=== PATIENT | female | born 1960 | race Caucasian/White ===

== ENCOUNTER 2019-11-21 19:32 | Inpatient (IN) | payer OTHER ==
[2019-11-21 20:21] LABS: Absolute Neutrophil Ct (ANC) 2.94 (1.4-6.9); BASOPHIL % 0.2 % (0.0-0.4); Basophil (Absolute #) 0.01 (0-0.4); Eosinophil (Absolute #) 0 (0-0.5); Hematocrit 41.3 % (35-47); Hemoglobin 13.5 gm/dl (12.0-16.0); Lymphocyte (Absolute #) 0.78 (1.0-4.6); Lymphocytes % 17.9 % (24.0-44.0); Mean Cell Volume 93.2 fl (78-100); Mean Corpuscular Hemoglobin 30.5 pg (26-32); Mean Corpuscular Hgb Concent. 32.7 g/dl (32-36); Monocyte (Absolute #) 0.63 (0.0-1.3); Monocytes % 14.4 % (0.0-12.0); Neutrophil % 67.5 % (36.0-66.0); Platelet Count 224 K/mm3 (150-450); Red Blood Count 4.43 M/mm3 (4.1-5.4); Red Cell Distribution Width 12.7 % (11.5-14.0); White Blood Count 4.4 K/mm3 (4.0-10.5)
[2019-11-21] MEDS ORDERED: Zofran 4 MG/2 ML VIAL IV ONE (20:22)
[2019-11-21] MEDS ORDERED: Sodium Chloride 0.9% 1000 ML 1,000 ML IV STA (20:22)
[2019-11-21] MEDS ORDERED: Zofran 4 MG/2 ML VIAL ONE (20:24)
[2019-11-21] MEDS ORDERED: Sodium Chloride 0.9% 1000 ML 1,000 ML ONE (20:24)
[2019-11-21 20:29] LABS: ALBUMIN 4.2 g/dL (3.5-5.0); ALKALINE PHOSPHATASE 108 U/L (38-126); AMYLASE 115 U/L (30-110); ANION GAP 13.1 MEQ/L (5-15); BLOOD UREA NITROGEN 17 mg/dL (7-17); CHLORIDE 99 mmol/L (98-107); Calcium 8.9 mg/dL (8.4-10.2); Carbon Dioxide 27 mmol/L (22-30); Creatinine 1 0.78 mg/dL (0.52-1.04); EST GLOMERULAR FILTRATION RATE > 60.0 ML/MIN; Glucose 181 mg/dL (74-106); LIPASE 188 U/L (23-300); Potassium 4.1 mmol/L (3.5-5.1); SGOT/AST 45 U/L (14-36); SGPT/ALT 24 U/L (0-35); SODIUM 136 mmol/L (137-145); Total Protein 7.6 g/dL (6.3-8.2)
--- NOTE | 2019-11-21 20:48 | ERPHSYRPT ---
- History of Present Illness Time Seen by Provider: 11/21/19 20:01 Historian: patient Exam Limitations: no limitations Patient Subjective Stated Complaint: "I've been real tired and weak for four days and then yesterday started vomiting." Triage Nursing Assessment: 59 y/o female presented with cc: fatigue, body aches, excessive tiredeness, and vomiting. Pt reported symptom onset of 4 days ago for the fatigue and myalgias. Symptoms reported to be constant and mild in severity. pt reported vomiting onset two days ago. Myalgias reproted to be general and all over. Pt denied any alleviating/aggrevating factors. Pt reported decreased food and fluid intake since symptom onset. Pt reporetd intermittent feelings of palpitations and racing heart beart. Pt denied headache, dizziness, visual/auditory disturbances. Pt denied chest pain/pressure/discomfort. Pt denied shortness of breath or cough. Pupils 3mm brisk reaction. Oral mucosa pale/moist. neck supple non-tender without lymphadenopathy. No noted JVD. Symmetrical chest expansion. Heart tones regular S1 and S2 without S3, S4, gallop, or murmur. Lungs clear to ausculation in the upper lobes with noted diffuse posterior bibasilar crackles. Abdomen flat non-distended with bowel sounds present throughout all quadrants. Diffuse tenderness noted upon palpation. No noted palpable organomegaly or pulsatile masses. No noted dependent edema. 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 Last night she started to have nausea and vomited multiple times, nonprojectile, nonbilious with no hematemesis. Because of repeated vomiting, is unable to hold much down since last night. Feels dehydrated. No diarrhea. She is complaining of mild mid to left lower abdominal soreness which is aggravated with vomiting. She is also having low-grade fever and chills. Timing/Duration: day(s), gradual onset, worse Activities at Onset: rest Quality: dullness Abdominal Pain Onset Location: LLQ, periumbilical Pain Radiation: no radiation Severity of Pain-Max: moderate Severity of Pain-Current: mild Modifying Factors: Improves With: vomiting Associated Symptoms: fever/chills, fatigue, nausea, vomiting, weakness Previous symptoms: no prior history Allergies/Adverse Reactions: No Known Drug Allergies Allergy (Verified 11/21/19 19:40) Home Medications: Aspirin EC 81 mg [Ecotrin 81 mg] 81 mg PO DAILY 01/24/17 [History] Cetirizine HCl [Zyrtec] 10 mg PO DAILY 01/24/17 [History] Metformin HCl 1,000 mg PO BID 01/24/17 [History] Sitagliptin Phosphate [Januvia] 100 mg PO DAILY 01/24/17 [History] Trazodone HCl 75 mg PO HS 01/24/17 [History] Vitamin B Complex [Super B Complex] 1 tab PO DAILY 01/24/17 [History] Empagliflozin [Jardiance] 25 mg PO DAILY 11/21/19 [History] Hx Tetanus, Diphtheria Vaccination/Date Given: No Hx Influenza Vaccination/Date Given: Yes Travel Risk - International Travel Have you traveled outside of the country in past 3 weeks: No - Coronavirus Screening Are you exhibiting any of the following symptoms?: Yes Symptoms: Vomiting/Diarrhea, Headaches/Body Aches/Fatigue Close contact with a COVID-19 positive Pt in past 14-21 Days: Yes - Review of Systems Constitutional: Fever, Chills, Fatigue, Malaise, Weakness Eyes: No Symptoms Ears, Nose, & Throat: No Symptoms Respiratory: No Symptoms Cardiac: No Symptoms Abdominal/Gastrointestinal: Abdominal Pain, Nausea, Vomiting Genitourinary Symptoms: No Symptoms Musculoskeletal: No Symptoms, Myalgias Skin: No Symptoms Neurological: No Symptoms Psychological: No Symptoms Endocrine: No Symptoms Hematologic/Lymphatic: No Symptoms Immunological/Allergic: No Symptoms - Past Medical History Pertinent Past Medical History: Yes Neurological History: No Pertinent History ENT History: No Pertinent History Cardiac History: Hypertension Respiratory History: Bronchitis Endocrine Medical History: Diabetes Type II Musculoskeletal History: No Pertinent History GI Medical History: No Pertinent History History: No Pertinent History Psycho-Social History: Depression Female Reproductive Disorders: No Pertinent History - Past Surgical History Past Surgical History: Yes Neuro Surgical History: No Pertinent History Cardiac: No Pertinent History Respiratory: No Pertinent History Gastrointestinal: Appendectomy Genitourinary: No Pertinent History Musculoskeletal: No Pertinent History Female Surgical History: Tubal Ligation - Social History Smoking Status: Never smoker Exposure to second hand smoke: No Drug Use: none Patient Lives Alone: Yes - Nursing Vital Signs Nursing Vital Signs: Initial Vital Signs Temperature 97.9 F 11/21/19 19:33 Pulse Rate 74 11/21/19 19:33 Respiratory Rate 12 11/21/19 19:33 Blood Pressure 164/84 11/21/19 19:33 O2 Sat by Pulse Oximetry 92 L 11/21/19 19:33 Pain Scale Pain Intensity 5 - Physical Exam General Appearance: no apparent distress, alert Eye Exam: PERRL/EOMI, eyes nml inspection Ears, Nose, Throat Exam: normal ENT inspection, pharynx normal Neck Exam: normal inspection, non-tender Respiratory Exam: normal breath sounds, lungs clear Cardiovascular Exam: regular rate/rhythm, normal heart sounds Gastrointestinal/Abdomen Exam: soft, tenderness (mild periumbilical/left lower quadrant) Back Exam: normal inspection, normal range of motion Extremity Exam: normal inspection Neurologic Exam: alert, oriented x 3, cooperative Skin Exam: normal color, warm SpO2 Interpretation: normal SpO2: 94 O2 Delivery: Room Air - Course EKG Interpreted by Me: RATE ([id number]), Sinus Rhythm, Left Vevay Deviation, NORMAL INTERVALS, NORMAL QRS Ordered Tests: Active Orders 24 hr Category Date Time Status Parlor Maid STAT Care 11/21/19 19:48 Active EKG-ER Only STAT Care 11/21/19 19:48 Active IV Insertion STAT Care 11/21/19 19:48 Active Pulse Oximetry (ED) STAT Care 11/21/19 19:48 Active OBSTR/ACUTE ABDOMEN SERIES Stat Exams 11/21/19 20:01 Taken AMYLASE Stat Lab 11/21/19 20:10 Completed BLOOD CULTURE Stat Lab 11/21/19 Ordered CBC W DIFF Stat Lab 11/21/19 20:10 Completed CMP Stat Lab 11/21/19 20:10 Completed CULTURE,URINE Stat Lab 11/21/19 22:00 Received LIPASE Stat Lab 11/21/19 20:10 Completed Lactic Acid Stat Lab 11/21/19 20:00 Completed TROPONIN Q3H Lab 11/21/19 20:10 Completed TROPONIN Q3H Lab 11/21/19 22:30 Completed UA W/RFX UR CULTURE Stat Lab 11/21/19 22:00 Completed Transfer Order Routine Transfer 11/21/19 Ordered Medication Summary Discontinued Medications Generic Name Dose Route Start Last Admin Trade Name Freq PRN Reason Stop Dose Admin Sodium Chloride 1,000 mls @ 999 mls/hr 11/21/19 20:22 11/21/19 22:00 Sodium Chloride 0.9% 1000 Ml IV 11/21/19 21:22 Infused .Q1H1M STA Infusion Sodium Chloride Confirm 11/21/19 20:24 Sodium Chloride 0.9% 1000 Ml Administered 11/21/19 20:25 Dose 1,000 mls @ ud .ROUTE .STK-MED ONE Azithromycin 500 mg in 250 mls @ 250 mls/hr 11/21/19 22:32 11/21/19 23:14 Zithromax 500 Mg/ 250 Ml Nacl Premix IV 11/21/19 23:31 250 mls/hr STAT STA 250 mls/hr Administration Ceftriaxone Sodium/Dextrose 2 g in 50 mls @ 100 mls/hr 11/21/19 22:32 11/21/19 22:37 Rocephin 2 Gm-D5w 50ml Bag IV 11/21/19 23:01 100 mls/hr STAT STA 100 mls/hr Administration Azithromycin Confirm 11/21/19 22:36 Zithromax 500 Mg/ 250 Ml Nacl Premix Administered 11/21/19 22:37 Dose 500 mg in 250 mls @ ud IV .STK-MED ONE Ceftriaxone Sodium/Dextrose Confirm 11/21/19 22:36 Rocephin 2 Gm-D5w 50ml Bag Administered 11/21/19 22:37 Dose 2 g in 50 mls @ ud IV .STK-MED ONE Morphine Sulfate 4 mg 11/21/19 23:59 Morphine Sulfate 4 Mg Inj IV 11/22/19 00:00 STAT ONE Ondansetron HCl 4 mg 11/21/19 20:22 11/21/19 20:25 Zofran 4 Mg/2 Ml Vial IV 11/21/19 20:23 4 mg STAT ONE Administration Ondansetron HCl Confirm 11/21/19 20:24 Zofran 4 Mg/2 Ml Vial Administered 11/21/19 20:25 Dose 4 mg .ROUTE .STK-MED ONE Lab/Rad Data: Laboratory Result Diagrams 11/21/19 20:10 11/21/19 20:10 Laboratory Results 11/21/19 11/21/19 11/21/19 Range/Units 22:30 22:30 22:00 WBC (4.0-10.5) K/mm3 RBC (4.1-5.4) M/mm3 Hgb (12.0-16.0) gm/dl Hct (35-47) % MCV (78-100) fl MCH (26-32) pg MCHC (32-36) g/dl RDW (11.5-14.0) % Plt Count (150-450) K/mm3 MPV (7.5-11.0) fl Gran % (36.0-66.0) % Eos # (Auto) (0-0.5) Absolute Lymphs (auto) (1.0-4.6) Absolute Monos (auto) (0.0-1.3) Lymphocytes % (24.0-44.0) % Monocytes % (0.0-12.0) % Eosinophils % (0.00-5.0) % Basophils % (0.0-0.4) % Absolute Granulocytes (1.4-6.9) Basophils # (0-0.4) Sodium (137-145) mmol/L Potassium (3.5-5.1) mmol/L Chloride (98-107) mmol/L Carbon Dioxide (22-30) mmol/L Anion Gap (5-15) MEQ/L BUN (7-17) mg/dL Creatinine (0.52-1.04) mg/dL Estimated GFR ML/MIN Glucose (74-106) mg/dL Lactic Acid (0.4-2.0) Calcium (8.4-10.2) mg/dL Total Bilirubin (0.2-1.3) mg/dL AST (14-36) U/L ALT (0-35) U/L Alkaline Phosphatase (38-126) U/L Troponin I 0.013 (0.000-0.034) ng/mL Serum Total Protein (6.3-8.2) g/dL Albumin (3.5-5.0) g/dL Amylase (30-110) U/L Lipase (23-300) U/L Urine Color YELLOW (YELLOW) Urine Appearance SLIGHTLY CLOUDY (CLEAR) Urine pH 6.0 (5-6) Ur Specific [place] 1.015 (1.005-1.025) Urine Protein 30 (Negative) Urine Ketones SMALL (NEGATIVE) Urine Blood NEGATIVE (0-5) Erik/ul Urine Nitrite NEGATIVE (NEGATIVE) Urine Bilirubin NEGATIVE (NEGATIVE) Urine Urobilinogen 2 (0-1) mg/dL Ur Leukocyte Esterase MODERATE (NEGATIVE) Urine WBC (Auto) 6-10 (0-5) /HPF Urine RBC (Auto) 0-2 (0-2) /HPF U Epithel Cells (Auto) RARE (FEW) /HPF Urine Bacteria (Auto) RARE (NEGATIVE) /HPF Urine Mucus (Auto) SLIGHT (NEGATIVE) /HPF Urine Culture Reflexed YES (NO) Urine Glucose >=500 (NEGATIVE) mg/dL Influenza Type A Ag (NEGATIVE) Influenza Type B Ag (NEGATIVE) RSV (PCR) (Negative) SARS-CoV-2 (PCR) POSITIVE A (NEGATIVE) 11/21/19 11/21/19 11/21/19 Range/Units 20:10 20:10 20:10 WBC (4.0-10.5) K/mm3 RBC (4.1-5.4) M/mm3 Hgb (12.0-16.0) gm/dl Hct (35-47) % MCV (78-100) fl MCH (26-32) pg MCHC (32-36) g/dl RDW (11.5-14.0) % Plt Count (150-450) K/mm3 MPV (7.5-11.0) fl Gran % (36.0-66.0) % Eos # (Auto) (0-0.5) Absolute Lymphs (auto) (1.0-4.6) Absolute Monos (auto) (0.0-1.3) Lymphocytes % (24.0-44.0) % Monocytes % (0.0-12.0) % Eosinophils % (0.00-5.0) % Basophils % (0.0-0.4) % Absolute Granulocytes (1.4-6.9) Basophils # (0-0.4) Sodium 136 L (137-145) mmol/L Potassium 4.1 (3.5-5.1) mmol/L Chloride 99 (98-107) mmol/L Carbon Dioxide 27 (22-30) mmol/L Anion Gap 13.1 (5-15) MEQ/L BUN 17 (7-17) mg/dL Creatinine 0.78 (0.52-1.04) mg/dL Estimated GFR > 60.0 ML/MIN Glucose 181 H (74-106) mg/dL Lactic Acid (0.4-2.0) Calcium 8.9 (8.4-10.2) mg/dL Total Bilirubin 0.70 (0.2-1.3) mg/dL AST 45 H (14-36) U/L ALT 24 (0-35) U/L Alkaline Phosphatase 108 (38-126) U/L Troponin I < 0.012 (0.000-0.034) ng/mL Serum Total Protein 7.6 (6.3-8.2) g/dL Albumin 4.2 (3.5-5.0) g/dL Amylase 115 H (30-110) U/L Lipase 188 (23-300) U/L Urine Color (YELLOW) Urine Appearance (CLEAR) Urine pH (5-6) Ur Specific [place] (1.005-1.025) Urine Protein (Negative) Urine Ketones (NEGATIVE) Urine Blood (0-5) Erik/ul Urine Nitrite (NEGATIVE) Urine Bilirubin (NEGATIVE) Urine Urobilinogen (0-1) mg/dL Ur Leukocyte Esterase (NEGATIVE) Urine WBC (Auto) (0-5) /HPF Urine RBC (Auto) (0-2) /HPF U Epithel Cells (Auto) (FEW) /HPF Urine Bacteria (Auto) (NEGATIVE) /HPF Urine Mucus (Auto) (NEGATIVE) /HPF Urine Culture Reflexed (NO) Urine Glucose (NEGATIVE) mg/dL Influenza Type A Ag NEGATIVE (NEGATIVE) Influenza Type B Ag NEGATIVE (NEGATIVE) RSV (PCR) NEGATIVE (Negative) SARS-CoV-2 (PCR) (NEGATIVE) 11/21/19 11/21/19 Range/Units 20:10 20:00 WBC 4.4 (4.0-10.5) K/mm3 RBC 4.43 (4.1-5.4) M/mm3 Hgb 13.5 (12.0-16.0) gm/dl Hct 41.3 (35-47) % MCV 93.2 (78-100) fl MCH 30.5 (26-32) pg MCHC 32.7 (32-36) g/dl RDW 12.7 (11.5-14.0) % Plt Count 224 (150-450) K/mm3 MPV 9.0 (7.5-11.0) fl Gran % 67.5 H (36.0-66.0) % Eos # (Auto) 0 (0-0.5) Absolute Lymphs (auto) 0.78 L (1.0-4.6) Absolute Monos (auto) 0.63 (0.0-1.3) Lymphocytes % 17.9 L (24.0-44.0) % Monocytes % 14.4 H (0.0-12.0) % Eosinophils % 0.0 (0.00-5.0) % Basophils % 0.2 (0.0-0.4) % Absolute Granulocytes 2.94 (1.4-6.9) Basophils # 0.01 (0-0.4) Sodium (137-145) mmol/L Potassium (3.5-5.1) mmol/L Chloride (98-107) mmol/L Carbon Dioxide (22-30) mmol/L Anion Gap (5-15) MEQ/L BUN (7-17) mg/dL Creatinine (0.52-1.04) mg/dL Estimated GFR ML/MIN Glucose (74-106) mg/dL Lactic Acid 2.1 H (0.4-2.0) Calcium (8.4-10.2) mg/dL Total Bilirubin (0.2-1.3) mg/dL AST (14-36) U/L ALT (0-35) U/L Alkaline Phosphatase (38-126) U/L Troponin I (0.000-0.034) ng/mL Serum Total Protein (6.3-8.2) g/dL Albumin (3.5-5.0) g/dL Amylase (30-110) U/L Lipase (23-300) U/L Urine Color (YELLOW) Urine Appearance (CLEAR) Urine pH (5-6) Ur Specific [place] (1.005-1.025) Urine Protein (Negative) Urine Ketones (NEGATIVE) Urine Blood (0-5) Erik/ul Urine Nitrite (NEGATIVE) Urine Bilirubin (NEGATIVE) Urine Urobilinogen (0-1) mg/dL Ur Leukocyte Esterase (NEGATIVE) Urine WBC (Auto) (0-5) /HPF Urine RBC (Auto) (0-2) /HPF U Epithel Cells (Auto) (FEW) /HPF Urine Bacteria (Auto) (NEGATIVE) /HPF Urine Mucus (Auto) (NEGATIVE) /HPF Urine Culture Reflexed (NO) Urine Glucose (NEGATIVE) mg/dL Influenza Type A Ag (NEGATIVE) Influenza Type B Ag (NEGATIVE) RSV (PCR) (Negative) SARS-CoV-2 (PCR) (NEGATIVE) - Progress Progress: unchanged, re-examined Progress Note: 11/21/19 23:53 She is given a fluid bolus along with Zofran. She does not want any pain medication currently. Abdominal exam is soft with minimal tenderness in the lower abdomen on the left especially. I have obtained acute abdomen series with chest x-ray showing picture consistent with viral infection with developing pneumonia on the right lower lobe. She has normal white count. Stable chemistries. She is started on Rocephin and Zithromax. I have obtained COVID- 19 testing which is positive. Patient oxygen saturation is staying around 90/91%. I think patient would benefit with observation admission with IV anti biotic and oxygenation if needed. She does not have any vomiting while in the ER after Zofran. Discussed with Dr. Jon and patient is being admitted. Plan discussed with patient who understand and agrees with it. Discussed with Dr.: Other () Will see patient in: hospital (observation) Counseled pt/family regarding: lab results, diagnosis, rad results - Departure Departure Disposition: Observation Clinical Impression: COVID-19 Pneumonia Qualifiers: Pneumonia type: due to unspecified organism Laterality: right Lung location: lower lobe of lung Qualified Code(s): J18.9 - Pneumonia, unspecified organism UTI (urinary tract infection) Qualifiers: Urinary tract infection type: site unspecified Hematuria presence: without hematuria Qualified Code(s): N39.0 - Urinary tract infection, site not specified Vomiting Qualifiers: Vomiting type: unspecified Vomiting Intractability: non-intractable Nausea presence: with nausea Qualified Code(s): R11.2 - Nausea with vomiting, unspecified Condition: Stable Critical Care Time: No Referrals: KENNY RAMSAY [Primary Care Provider] -
[2019-11-21 21:11] LABS: INFLUENZA A NEGATIVE (NEGATIVE); INFLUENZA B NEGATIVE (NEGATIVE); RESPIRATORY SYNCTIAL VIRUS NEGATIVE (Negative)
[2019-11-21 22:19] LABS: Appearance SLIGHTLY CLOUDY (CLEAR); Bacteria RARE /HPF (NEGATIVE); Bilirubin NEGATIVE (NEGATIVE); Blood NEGATIVE Ery/ul (0-5); Epithelial Cells RARE /HPF (FEW); Glucose >=500 mg/dL (NEGATIVE); Ketones SMALL (NEGATIVE); Leukocyte Esterase MODERATE (NEGATIVE); Mucus SLIGHT /HPF (NEGATIVE); Nitrite NEGATIVE (NEGATIVE); Protein,Urine Dip 30 (Negative); RBC 0-2 /HPF (0-2); Specific Gravity 1.015 (1.005-1.025); Urobilinogen 2 mg/dL (0-1)
[2019-11-21] MEDS ORDERED: Zithromax 500 MG/ 250 ML NaCl Premix 500 MG/250 ML IVPB IV STA (22:32)
[2019-11-21] MEDS ORDERED: ROCEPHIN 2 Gm-D5w 50ML BAG** 2 G/50 ML IVPB IV STA (22:32)
[2019-11-21] MEDS ORDERED: Zithromax 500 MG/ 250 ML NaCl Premix 500 MG/250 ML IVPB IV ONE (22:36)
[2019-11-21] MEDS ORDERED: ROCEPHIN 2 Gm-D5w 50ML BAG** 2 G/50 ML IVPB IV ONE (22:36)
[2019-11-21] MEDS ORDERED: MORPHINE SULFATE 4 MG INJ IV ONE (23:59)
[2019-11-22] MEDS ORDERED: MORPHINE SULFATE 4 MG INJ ONE (00:22)
[2019-11-22] MEDS ORDERED: Zofran 4 MG/2 ML VIAL IV ONE (00:42)
[2019-11-22] MEDS ORDERED: Zofran 4 MG/2 ML VIAL ONE (00:43)
[2019-11-22] MEDS ORDERED: TYLENOL 325 MG PO PRN (01:11)
[2019-11-22] MEDS ORDERED: MORPHINE SULFATE 4 MG INJ IV PRN (01:11)
[2019-11-22] MEDS ORDERED: Zofran 4 MG/2 ML VIAL IV PRN (01:11)
[2019-11-22] MEDS ORDERED: HUMALOG SQ PRN ×2 (01:11→11:30)
[2019-11-22] MEDS: Lactated Ringers 1,000 ML IV SCH (02:23)
[2019-11-22 06:21] LABS: Absolute Neutrophil Ct (ANC) 1.98 (1.4-6.9); BASOPHIL % 0.3 % (0.0-0.4); Basophil (Absolute #) 0.01 (0-0.4); Eosinophil % 0.3 % (0.00-5.0); Eosinophil (Absolute #) 0.01 (0-0.5); Hematocrit 37.5 % (35-47); Hemoglobin 12.1 gm/dl (12.0-16.0); Lymphocyte (Absolute #) 1.27 (1.0-4.6); Mean Cell Volume 94.2 fl (78-100); Mean Corpuscular Hemoglobin 30.4 pg (26-32); Mean Corpuscular Hgb Concent. 32.3 g/dl (32-36); Mean Platelet Volume 8.9 fl (7.5-11.0); Monocyte (Absolute #) 0.47 (0.0-1.3); Monocytes % 12.6 % (0.0-12.0); Neutrophil % 52.8 % (36.0-66.0); Platelet Count 206 K/mm3 (150-450); Red Blood Count 3.98 M/mm3 (4.1-5.4); Red Cell Distribution Width 12.7 % (11.5-14.0); White Blood Count 3.7 K/mm3 (4.0-10.5)
[2019-11-22 06:34] LABS: ALBUMIN 3.4 g/dL (3.5-5.0); ALKALINE PHOSPHATASE 84 U/L (38-126); ANION GAP 9.1 MEQ/L (5-15); BLOOD UREA NITROGEN 13 mg/dL (7-17); CHLORIDE 105 mmol/L (98-107); Calcium 8.2 mg/dL (8.4-10.2); Carbon Dioxide 27 mmol/L (22-30); Creatinine 1 0.64 mg/dL (0.52-1.04); EST GLOMERULAR FILTRATION RATE > 60.0 ML/MIN; Glucose 113 mg/dL (74-106); Potassium 3.7 mmol/L (3.5-5.1); SGOT/AST 39 U/L (14-36); SGPT/ALT 21 U/L (0-35); SODIUM 137 mmol/L (137-145); Total Protein 6.5 g/dL (6.3-8.2)
[2019-11-22] MEDS: VENTOLIN COMMON CANISTER IH SCH ×4 (07:01→20:28)
[2019-11-22] MEDS: Decadron 4 MG INJ IV SCH ×2 (09:13→21:21)
[2019-11-22] MEDS: Pepcid 20 MG VIAL IV SCH ×2 (09:14→21:22)
[2019-11-22] MEDS: ENOXAPARIN SODIUM SQ SCH ×2 (09:14→10:41)
[2019-11-22] MEDS ORDERED: REMDESIVIR 200 MG in Sodium Chloride 0.9% 250 ML 250 ML IV SCH (10:00)
[2019-11-22] MEDS ORDERED: ROCEPHIN 1 Gm-D5w 50 ml Bag** 1 G/50 ML IVPB IV SCH (10:00)
[2019-11-22] MEDS ORDERED: Zithromax 500 MG/ 250 ML NaCl Premix 500 MG/250 ML IVPB IV SCH (10:00)
[2019-11-22] MEDS ORDERED: MEDICATION INTERVENTION PO SCH (11:45)
[2019-11-22] MEDS: Colace 100 MG PO SCH (12:02)
[2019-11-22] MEDS: CLARITIN 10 MG PO SCH (12:02)
[2019-11-22] MEDS: ECOTRIN 81 MG PO SCH (12:02)
[2019-11-22] MEDS: Zofran 4 MG/2 ML VIAL IV PRN ×2 (12:24→21:23)
[2019-11-22 13:06] LABS: ABO TYPING O; Antibody Screen NEGATIVE (NEGATIVE); RH TYPING POSITIVE
[2019-11-22] MEDS: Glucophage 500 MG PO SCH (16:38)
--- NOTE | 2019-11-22 20:03 | XRAY ---
Indication: Nausea, vomiting, and weakness. Comparison: None 2 view abdomen demonstrates nonspecific nonobstructive bowel gas pattern. Solid organs and osseous structures are unremarkable. Scattered vascular calcifications. Single frontal chest demonstrates minimal left mid to lower lung fibrosis/scarring. Remaining heart, lungs, and bony thorax normal. Impression: Nonacute nonobstructed abdomen. Nonacute one view chest with chronic feature. Comment: Preliminary interpretation was made by [facility]. No critical discrepancy.
[2019-11-22] MEDS: Desyrel 150 MG PO SCH (21:22)
[2019-11-22] MEDS: Prozac 20 MG PO SCH (21:22)
[2019-11-22] MEDS: ZOCOR 20MG PO SCH (21:23)
[2019-11-22] MEDS ORDERED: Sodium Chloride 0.9% 500 ML 500 ML IV SCH (21:30)
[2019-11-22] MEDS ORDERED: DESYREL 50 MG PO SCH (22:00)
[2019-11-22] MEDS ORDERED: NON-FORMULARY ITEM (Atorvastatin Calcium [Atorvastatin Calcium] 20 MG) PO SCH (22:00)
[2019-11-23] MEDS: Lactated Ringers 1,000 ML IV SCH ×2 (01:36→21:27)
[2019-11-23] MEDS: VENTOLIN COMMON CANISTER IH SCH ×4 (07:20→19:42)
[2019-11-23] MEDS: Glucophage 500 MG PO SCH ×2 (08:04→16:49)
[2019-11-23] MEDS ORDERED: NON-FORMULARY ITEM (Empagliflozin [Jardiance] 25 MG) PO SCH (10:00)
[2019-11-23] MEDS: ENOXAPARIN SODIUM SQ SCH ×2 (10:13→10:46)
[2019-11-23] MEDS: Decadron 4 MG INJ IV SCH ×2 (10:13→21:12)
[2019-11-23] MEDS: CLARITIN 10 MG PO SCH (10:13)
[2019-11-23] MEDS: Colace 100 MG PO SCH ×2 (10:13→10:46)
[2019-11-23] MEDS: ECOTRIN 81 MG PO SCH (10:13)
[2019-11-23] MEDS: Pepcid 20 MG VIAL IV SCH ×2 (10:25→21:13)
[2019-11-23] MEDS: REMDESIVIR 100 MG in Sodium Chloride 0.9% 100 ML IVPB 100 ML IV SCH (10:45)
--- NOTE | 2019-11-23 14:36 | HP ---
CHIEF COMPLAINT: Abdominal pain, fatigue, diarrhea, vomiting. HISTORY OF PRESENT ILLNESS: The patient is a 59 year old white female with the above complaints for four days. 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 While in the emergency room she really did not have any shortness of breath. I believe O2 saturations were okay. She was sent to the floor without oxygen and was felt we would have to treat the GI problems. No one at home has it. She is isolated from her children and her grandchildren. She has quite a bit of pain left lower quadrant. She has fever, chills, nausea, vomiting and weakness. TRAVEL RISK: None. CORONAVIRUS SCREENING: Definitely has symptoms and works in a [employer] unit, has not been any place, has not been around anybody except nurses and patients at the [employer] unit for the last two weeks. MEDICATIONS: Aspirin 81 q.d., Zyrtec 10 q.d., Metformin 1,000 b.i.d., empagliflozin which is Januvia 100 q.d., trazodone 75 q.d., B12 complex 1 q.d. and Jardiance 25 q.d. ALLERGIES: NKDA. PAST MEDICAL HISTORY: Diabetes mellitus on medications, no insulin. Some depression since the of her three or four years ago. PAST SURGICAL HISTORY: Appendectomy. Tubal ligation. REVIEW OF SYSTEMS: CONSTITUTIONAL: Has fever, chills, malaise and weakness. HEENT: Eyes no problems. No coughing, no sneezing. RESPIRATORY: No symptoms yet. CARDIAC: No history of heart disease, has diabetes. : No symptoms. FAMILY HISTORY: She is a , has kids not at home and has worked for years at [facility] [employer] [facility]. SOCIAL HISTORY: Never smoker. No drug use. No alcohol use. PHYSICAL EXAMINATION: VITAL SIGNS: Temperature 97F, pulse 74, respirations 12, blood pressure 164/84. O2 saturation on room air was 92%. HEENT: Pupils equal and reactive to light. NECK: Supple without adenopathy. CHEST: Clear. CVS: No murmurs or gallops. ABDOMEN: Tender especially left lower quadrant. EXTREMITIES: Normal. LAB DATA AND TESTS: Troponin, lipase, amylase, liver enzymes negative. In the emergency room she was given Rocephin and Zithromax because of infiltrates however her white count is normal. She had a positive COVID test for that reason I am going to switch her over to Decadron and Remdesivir 200. As the night went on her O2 levels did drop. She is on oxygen with optimizer, to see if the drugs will kick in. She is comfortable at rest. IMPRESSION: 1) COVID pneumonia. 2) COVID gastroenteritis. 3) Diabetes mellitus type II. PROGNOSIS: Fair - guarded.
[2019-11-23] MEDS: Prozac 20 MG PO SCH (21:13)
[2019-11-23] MEDS: ZOCOR 20MG PO SCH (21:13)
[2019-11-23] MEDS: Desyrel 150 MG PO SCH (21:13)
[2019-11-24] MEDS: VENTOLIN COMMON CANISTER IH SCH ×4 (07:10→19:45)
[2019-11-24] MEDS: Glucophage 500 MG PO SCH ×2 (07:59→17:01)
[2019-11-24] MEDS: Colace 100 MG PO SCH ×2 (07:59→10:04)
[2019-11-24] MEDS: CLARITIN 10 MG PO SCH (07:59)
[2019-11-24] MEDS: ECOTRIN 81 MG PO SCH (07:59)
[2019-11-24] MEDS: ENOXAPARIN SODIUM SQ SCH ×3 (07:59→09:58)
[2019-11-24] MEDS: Decadron 4 MG INJ IV SCH ×2 (08:00→21:07)
[2019-11-24] MEDS: Pepcid 20 MG VIAL IV SCH ×2 (08:01→21:07)
[2019-11-24] MEDS: REMDESIVIR 100 MG in Sodium Chloride 0.9% 100 ML IVPB 100 ML IV SCH (09:58)
[2019-11-24] MEDS: Macrobid 100MG Capsule PO SCH ×2 (10:03→17:01)
[2019-11-24] MEDS: Lactated Ringers 1,000 ML IV SCH (12:06)
[2019-11-24] MEDS: Desyrel 150 MG PO SCH (21:07)
[2019-11-24] MEDS: ZOCOR 20MG PO SCH (21:12)
[2019-11-24] MEDS: Prozac 20 MG PO SCH (21:12)
[2019-11-24] MEDS: TYLENOL EXTRA STRENGTH 500 MG PO PRN (21:12)
[2019-11-25] MEDS: Lactated Ringers 1,000 ML IV SCH (04:36)
[2019-11-25 04:55] LABS: Hematocrit 39.3 % (35-47); Hemoglobin 12.4 gm/dl (12.0-16.0); Mean Cell Volume 95.6 fl (78-100); Mean Corpuscular Hemoglobin 30.2 pg (26-32); Mean Corpuscular Hgb Concent. 31.6 g/dl (32-36); Mean Platelet Volume 8.6 fl (7.5-11.0); Platelet Count 317 K/mm3 (150-450); Red Blood Count 4.11 M/mm3 (4.1-5.4); Red Cell Distribution Width 12.9 % (11.5-14.0); White Blood Count 7.2 K/mm3 (4.0-10.5)
[2019-11-25 05:20] LABS: ALBUMIN 3.2 g/dL (3.5-5.0); ALKALINE PHOSPHATASE 81 U/L (38-126); ANION GAP 8.7 MEQ/L (5-15); BLOOD UREA NITROGEN 22 mg/dL (7-17); CHLORIDE 105 mmol/L (98-107); Calcium 8.7 mg/dL (8.4-10.2); Carbon Dioxide 28 mmol/L (22-30); Creatinine 1 0.61 mg/dL (0.52-1.04); EST GLOMERULAR FILTRATION RATE > 60.0 ML/MIN; Glucose 267 mg/dL (74-106); SGOT/AST 35 U/L (14-36); SGPT/ALT 24 U/L (0-35); SODIUM 138 mmol/L (137-145); Total Protein 5.9 g/dL (6.3-8.2)
[2019-11-25] MEDS: VENTOLIN COMMON CANISTER IH SCH ×4 (07:14→19:40)
[2019-11-25] MEDS: Macrobid 100MG Capsule PO SCH ×2 (08:08→17:02)
[2019-11-25] MEDS: Glucophage 500 MG PO SCH ×2 (08:08→17:02)
[2019-11-25] MEDS: TYLENOL EXTRA STRENGTH 500 MG PO PRN ×2 (08:08→19:57)
--- NOTE | 2019-11-25 10:11 | XRAY ---
Indication: Positive Covid 19. Comparison: November 21, 2019. Portable chest now underinflated with new bilateral mid to lower lung subsegmental atelectasis. Remaining heart and upper lungs unremarkable.
[2019-11-25] MEDS: Decadron 4 MG INJ IV SCH ×2 (10:41→21:04)
[2019-11-25] MEDS: REMDESIVIR 100 MG in Sodium Chloride 0.9% 100 ML IVPB 100 ML IV SCH (10:41)
[2019-11-25] MEDS: Pepcid 20 MG VIAL IV SCH ×2 (10:41→21:04)
[2019-11-25] MEDS: ECOTRIN 81 MG PO SCH (10:42)
[2019-11-25] MEDS: ENOXAPARIN SODIUM SQ SCH (10:42)
[2019-11-25] MEDS: CLARITIN 10 MG PO SCH (10:42)
[2019-11-25] MEDS: Colace 100 MG PO SCH (14:38)
[2019-11-25] MEDS: Prozac 20 MG PO SCH (21:04)
[2019-11-25] MEDS: ZOCOR 20MG PO SCH (21:04)
[2019-11-25] MEDS: Desyrel 150 MG PO SCH (21:04)
[2019-11-25] MEDS ORDERED: Cyclobenzaprine 10 MG PO PRN (21:28)
[2019-11-26] MEDS: Lactated Ringers 1,000 ML IV SCH ×2 (00:37→18:32)
[2019-11-26] MEDS ORDERED: APRESOLINE 20 MG/ML INJ IV ONE (01:00)
[2019-11-26] MEDS: Macrobid 100MG Capsule PO SCH ×2 (07:37→17:10)
[2019-11-26] MEDS: Glucophage 500 MG PO SCH ×2 (07:37→17:10)
[2019-11-26] MEDS: ENOXAPARIN SODIUM SQ SCH (09:01)
[2019-11-26] MEDS: Pepcid 20 MG VIAL IV SCH ×2 (09:01→21:35)
[2019-11-26] MEDS: Decadron 4 MG INJ IV SCH ×2 (09:01→21:35)
[2019-11-26] MEDS: Colace 100 MG PO SCH ×2 (09:02→09:08)
[2019-11-26] MEDS: ECOTRIN 81 MG PO SCH (09:02)
[2019-11-26] MEDS: CLARITIN 10 MG PO SCH (09:02)
[2019-11-26] MEDS: REMDESIVIR 100 MG in Sodium Chloride 0.9% 100 ML IVPB 100 ML IV SCH (09:03)
[2019-11-26] MEDS: Zestril 20 MG PO SCH (10:03)
[2019-11-26] MEDS: VENTOLIN COMMON CANISTER IH SCH ×4 (10:27→23:32)
[2019-11-26] MEDS ORDERED: Lasix 20 MG/2 ML ONE (18:30)
[2019-11-26] MEDS: Desyrel 150 MG PO SCH (21:35)
[2019-11-26] MEDS: TYLENOL EXTRA STRENGTH 500 MG PO PRN (21:36)
[2019-11-26] MEDS: ZOCOR 20MG PO SCH (21:36)
[2019-11-26] MEDS: Prozac 20 MG PO SCH (21:36)
[2019-11-27] MEDS: VENTOLIN COMMON CANISTER IH SCH ×4 (05:30→20:10)
[2019-11-27] MEDS: Glucophage 500 MG PO SCH ×2 (07:34→16:53)
[2019-11-27] MEDS: Macrobid 100MG Capsule PO SCH ×2 (07:34→16:53)
[2019-11-27] MEDS: ECOTRIN 81 MG PO SCH (08:58)
[2019-11-27] MEDS: ENOXAPARIN SODIUM SQ SCH (08:58)
[2019-11-27] MEDS: CLARITIN 10 MG PO SCH (08:58)
[2019-11-27] MEDS: Colace 100 MG PO SCH ×2 (08:58→09:27)
[2019-11-27] MEDS: Pepcid 20 MG VIAL IV SCH ×2 (08:58→21:34)
[2019-11-27] MEDS: Zestril 20 MG PO SCH (08:58)
[2019-11-27] MEDS: Decadron 4 MG INJ IV SCH ×2 (08:58→21:32)
[2019-11-27] MEDS: NORVASC 5 MG PO SCH (10:53)
[2019-11-27] MEDS ORDERED: Lasix 20 MG/2 ML IV ONE (18:30)
[2019-11-27] MEDS: Prozac 20 MG PO SCH (21:30)
[2019-11-27] MEDS: Desyrel 150 MG PO SCH (21:32)
[2019-11-27] MEDS: ZOCOR 20MG PO SCH (21:33)
[2019-11-27] MEDS: TYLENOL EXTRA STRENGTH 500 MG PO PRN (21:33)
[2019-11-28] MEDS ORDERED: Sodium Chloride 0.9% 10 ML FLUSH Syringe IV PRN (07:45)
[2019-11-28] MEDS: VENTOLIN COMMON CANISTER IH SCH ×4 (07:59→19:53)
[2019-11-28] MEDS: Macrobid 100MG Capsule PO SCH ×2 (08:04→16:32)
[2019-11-28] MEDS: Glucophage 500 MG PO SCH ×2 (08:04→16:32)
[2019-11-28] MEDS: Zestril 20 MG PO SCH (09:08)
[2019-11-28] MEDS: Decadron 4 MG INJ IV SCH ×2 (09:08→21:36)
[2019-11-28] MEDS: NORVASC 5 MG PO SCH (09:08)
[2019-11-28] MEDS: Colace 100 MG PO SCH (09:08)
[2019-11-28] MEDS: ENOXAPARIN SODIUM SQ SCH (09:08)
[2019-11-28] MEDS: CLARITIN 10 MG PO SCH (09:08)
[2019-11-28] MEDS: Pepcid 20 MG VIAL IV SCH ×2 (09:08→21:36)
[2019-11-28] MEDS: ECOTRIN 81 MG PO SCH (09:08)
[2019-11-28] MEDS ORDERED: Sodium Chloride 0.9% 10 ML FLUSH Syringe IV SCH (14:00)
[2019-11-28] MEDS: Prozac 20 MG PO SCH (21:36)
[2019-11-28] MEDS: ZOCOR 20MG PO SCH (21:36)
[2019-11-28] MEDS: Desyrel 150 MG PO SCH (21:36)
[2019-11-29] MEDS: Glucophage 500 MG PO SCH (07:59)
[2019-11-29] MEDS: Macrobid 100MG Capsule PO SCH (07:59)
[2019-11-29] MEDS: VENTOLIN COMMON CANISTER IH SCH (08:00)
[2019-11-29] MEDS: Zestril 20 MG PO SCH (09:19)
[2019-11-29] MEDS: ECOTRIN 81 MG PO SCH (09:19)
[2019-11-29] MEDS: NORVASC 5 MG PO SCH (09:19)
[2019-11-29] MEDS: CLARITIN 10 MG PO SCH (09:19)
[2019-11-29] MEDS: Colace 100 MG PO SCH (09:19)
[2019-11-29] MEDS: ENOXAPARIN SODIUM SQ SCH (09:19)
[2019-11-29] MEDS: Pepcid 20 MG VIAL IV SCH (09:19)
[2019-11-29] MEDS: Decadron 4 MG INJ IV SCH (09:19)
[2019-11-29 10:33] VITALS: O2SAT 95
[2019-11-29 11:26] VITALS: BP 126/73; PULSE 68
== END 2019-11-29 12:15 | disposition home or self-care (01) | DRG 177 ==
LOC: ED 19:32 → MED SURG 11-22 01:06 → OBSVTOIN 11-22 07:51
PROVIDERS: ADMIT Family Medicine; ATTEND Family Medicine
DX: U07.1 COVID-19 (principal); J12.89 Other viral pneumonia; K52.9 Noninfective gastroenteritis and colitis, unspecified; R10.9 Unspecified abdominal pain; R53.83 Other fatigue; R11.10 Vomiting, unspecified; E11.9 Type 2 diabetes mellitus without complications; E86.0 Dehydration; Z79.899 Other long term (current) drug therapy
CPT/HCPCS: 36000; 36415; 36430; 71045; 74022; 80053; 81001; 82150; 82962; 83036; 83605; 83690; 84484; 85025; 85027; 86850; 86900; 86901; 86922; 86931; 87040; 87077; 87086; 87186; 87631; 93005; 93041; 93268; 94640; 94760; 94762; 96360; 96365; 96367; 96374; 96375; 99285; J0360; J0456; J0696; J1100; J1650; J1817; J1940; J2270; J2405; U0003; A9270-GY

== ENCOUNTER 2020-07-22 20:53 | Observation (INO) | payer OTHER ==
[2020-07-22] MEDS ORDERED: MORPHINE SULFATE 4 MG INJ IV ONE (21:09)
[2020-07-22] MEDS ORDERED: Zofran 4 MG/2 ML VIAL IV ONE (21:09)
[2020-07-22] MEDS ORDERED: solu-MEDROL 125 MG IV ONE (21:10)
[2020-07-22] MEDS ORDERED: solu-MEDROL 125 MG ONE (21:21)
[2020-07-22] MEDS ORDERED: MORPHINE SULFATE 4 MG INJ ONE (21:21)
[2020-07-22] MEDS ORDERED: Zofran 4 MG/2 ML VIAL ONE (21:21)
[2020-07-22 21:34] LABS: Absolute Neutrophil Ct (ANC) 2.49 (1.4-6.9); Mean Corpuscular Hemoglobin 30.9 pg (26-32); Mean Corpuscular Hgb Concent. 32.5 g/dl (32-36); Mean Platelet Volume 8.7 fl (7.5-11.0); Platelet Count 254 K/mm3 (150-450); Red Blood Count 4.21 M/mm3 (4.1-5.4); Red Cell Distribution Width 13.6 % (11.5-14.0); White Blood Count 5.6 K/mm3 (4.0-10.5)
--- NOTE | 2020-07-22 21:35 | ERPHSYRPT ---
- History of Present Illness Time Seen by Provider: 07/22/20 21:00 Source: patient Exam Limitations: no limitations Patient Subjective Stated Complaint: "My shingles are worse." Triage Nursing Assessment: Patient reported being recently diagnosed with shingles which is located to the left forehead and scalp. Reported starting aciclovir 800mg yesterday. reported that since last night, she has had significant swelling to the left eye. Denied sore throat, dysphagia, chest pain, or shortness of breath. Left eye with significant periorbital edema. Eyelids were able to be opened with non-injected sclera. EOMs intact. Swelling extended to the border to the nose. Tearing noted to the outer canthus. Oral mucosa pink/moist without ulcerations or lesions. Symmetrical chest expansion. Lungs vesicular. Physician History: This is a 59-year-old white female with a history of diabetes and hypertension who noticed 3 days ago she she had rash and scabs on her left forehead. She was out and about hiking on vacation. She thought she may have gotten bitten by something. However her symptoms worsened and she was diagnosed with shingles yesterday. She was given prescription for acyclovir. She took 800 mg 5 times daily that she began yesterday. She woke up this morning and the pain was more significant as was the swelling on her left forehead and the left periorbital region. Timing/Duration: day(s) (3) Location: left eye Severity: moderate Apparent Injury: no Associated Symptoms: redness, eyelid swelling Chemical Exposure: No Trauma: No Welding Arc/Tanning Bed Exposure: No Allergies/Adverse Reactions: No Known Drug Allergies Allergy (Verified 07/22/20 21:01) Home Medications: Aspirin EC 81 mg [Ecotrin 81 mg] 81 mg PO DAILY 01/24/17 [History] Cetirizine HCl [Zyrtec] 10 mg PO DAILY 01/24/17 [History] Metformin HCl 1,000 mg PO BID 01/24/17 [History] Trazodone HCl 100 mg PO HS 01/24/17 [History] Vitamin B Complex [Super B Complex] 1 tab PO DAILY 01/24/17 [History] Empagliflozin [Jardiance] 25 mg PO DAILY 11/21/19 [History] Atorvastatin Calcium 20 mg PO HS 11/22/19 [History] Biotin 5,000 mcg PO DAILY 11/22/19 [History] Docusate Sodium 100 mg [Colace 100 MG] 100 mg PO DAILY 11/22/19 [History] Fluoxetine HCl 20 mg [Prozac 20 MG] 40 mg PO HS 11/22/19 [History] Lisinopril 10 mg [Zestril 10 MG] 1 tab PO DAILY 07/22/20 [History] Hx Tetanus, Diphtheria Vaccination/Date Given: No Hx Influenza Vaccination/Date Given: Yes Travel Risk - International Travel Have you traveled outside of the country in past 3 weeks: No - Coronavirus Screening Are you exhibiting any of the following symptoms?: No Close contact with a COVID-19 positive Pt in past 14-21 Days: No - Vaccine Status Have you recieved a Covid-19 vaccination: Yes Business Administrator: Moderna - Vaccination Dates Date of 2cond Vaccination (if applicable): 05/05/20 - Review of Systems Constitutional: No Symptoms Eyes: Eye Pain Ears, Nose, & Throat: No Symptoms Respiratory: No Symptoms Cardiac: No Symptoms Abdominal/Gastrointestinal: No Symptoms Genitourinary Symptoms: No Symptoms Musculoskeletal: No Symptoms Skin: Other (Left periorbital redness and swelling) Neurological: No Symptoms Psychological: No Symptoms Endocrine: No Symptoms Hematologic/Lymphatic: No Symptoms Immunological/Allergic: No Symptoms All Other Systems: Reviewed and Negative - Past Medical History Pertinent Past Medical History: Yes Neurological History: No Pertinent History ENT History: No Pertinent History Cardiac History: Hypertension Respiratory History: No Pertinent History Endocrine Medical History: Diabetes Type II Musculoskeletal History: No Pertinent History GI Medical History: No Pertinent History History: No Pertinent History Psycho-Social History: Depression Female Reproductive Disorders: No Pertinent History Other Medical History: pt states she has hx of HTN and now has some problems with hypotension - Past Surgical History Past Surgical History: Yes Neuro Surgical History: No Pertinent History Cardiac: No Pertinent History Respiratory: No Pertinent History Gastrointestinal: No Pertinent History Genitourinary: No Pertinent History Musculoskeletal: No Pertinent History Female Surgical History: Tubal Ligation - Social History Smoking Status: Never smoker Exposure to second hand smoke: No Drug Use: none Patient Lives Alone: Yes - Nursing Vital Signs Nursing Vital Signs: Initial Vital Signs Temperature 98.8 F 07/22/20 20:54 Pulse Rate 96 H 07/22/20 20:54 Respiratory Rate 16 07/22/20 20:54 Blood Pressure 181/101 07/22/20 20:54 O2 Sat by Pulse Oximetry 98 07/22/20 20:54 Pain Scale Pain Intensity 8 - Physical Exam General Appearance: no apparent distress, alert, anxiety Eye Exam: left eye: eyelid inflammation, vision changes (It is preventing the patient from keeping the left eye open), bilateral eye: PERRL, EOMI Ears, Nose, Throat Exam: normal ENT inspection, moist mucous membranes Neck Exam: normal inspection, non-tender, supple, full range of motion Respiratory Exam: normal breath sounds, lungs clear, airway intact, No chest tenderness, No respiratory distress Gastrointestinal Exam: No tenderness Extremity Exam: normal inspection, normal range of motion, pelvis stable Neurologic: alert, oriented x 3, cooperative, senior functional analyst II-XII nml as tested, normal mood/affect, nml cerebellar function, nml station & gait, sensation nml Skin Exam: other (Eschar left forehead with redness present. There is periorbital edema more than redness and cellulitis on the left side periorbital region.) Lymphatic: No adenopathy SpO2 Interpretation: normal SpO2: 98 O2 Delivery: Room Air - Course Nursing assessment & vital signs reviewed: Yes Ordered Tests: Active Orders 24 hr Category Date Time Status IV Insertion STAT Care 07/22/20 21:09 Active Wound Care STAT Care 07/22/20 21:09 Active FACIAL BONES WO CONTRAST [CT] Stat Exams 07/22/20 21:08 Taken BLOOD CULTURE Stat Lab 07/22/20 21:25 Received CBC W DIFF Stat Lab 07/22/20 21:15 Completed CMP Stat Lab 07/22/20 21:15 Completed Lactic Acid Stat Lab 07/22/20 21:09 Ordered Manual Differential NC Stat Lab 07/22/20 21:15 Completed Transfer Order Routine Transfer 07/22/20 Ordered Medication Summary Generic Name Dose Route Start Last Admin Trade Name Freq PRN Reason Stop Dose Admin Ceftriaxone Sodium/Dextrose 1 g in 50 mls @ 100 mls/hr 07/22/20 22:24 Rocephin 1 Gm-D5w 50 Ml Bag IV 07/22/20 22:53 STAT STA Clindamycin HCl/Dextrose 600 mg in 50 mls @ 100 mls/hr 07/22/20 22:24 Clindamycin-D5w 600 Mg/50 Ml IV 07/22/20 22:53 STAT STA Discontinued Medications Generic Name Dose Route Start Last Admin Trade Name [place] PRN Reason Stop Dose Admin Methylprednisolone Sodium Succinate 125 mg 07/22/20 21:10 07/22/20 21:22 Solu-Medrol 125 Mg IV 07/22/20 21:11 125 mg STAT ONE Administration Methylprednisolone Sodium Succinate Confirm 07/22/20 21:21 Solu-Medrol 125 Mg Administered 07/22/20 21:22 Dose 125 mg .ROUTE .STK-MED ONE Morphine Sulfate 4 mg 07/22/20 21:09 07/22/20 21:23 Morphine Sulfate 4 Mg Inj IV 07/22/20 21:10 4 mg STAT ONE Administration Morphine Sulfate Confirm 07/22/20 21:21 Morphine Sulfate 4 Mg Inj Administered 07/22/20 21:22 Dose 4 mg .ROUTE .STK-MED ONE Ondansetron HCl 4 mg 07/22/20 21:09 07/22/20 21:23 Zofran 4 Mg/2 Ml Vial IV 07/22/20 21:10 4 mg STAT ONE Administration Ondansetron HCl Confirm 07/22/20 21:21 Zofran 4 Mg/2 Ml Vial Administered 07/22/20 21:22 Dose 4 mg .ROUTE .STK-MED ONE Lab/Rad Data: Laboratory Result Diagrams 07/22/20 21:15 07/22/20 21:15 Laboratory Results 07/22/20 07/22/20 Range/Units 21:15 21:15 WBC 5.6 (4.0-10.5) K/mm3 RBC 4.21 (4.1-5.4) M/mm3 Hgb 13.0 (12.0-16.0) gm/dl Hct 40.0 (35-47) % MCV 95.0 (78-100) fl MCH 30.9 (26-32) pg MCHC 32.5 (32-36) g/dl RDW 13.6 (11.5-14.0) % Plt Count 254 (150-450) K/mm3 MPV 8.7 (7.5-11.0) fl Absolute Granulocytes 2.49 (1.4-6.9) Segmented Neutrophils 49 (36.0-66.0) % Band Neutrophils 3 H (0.0-2.0) % Lymphocytes (Manual) 29 (24-44) % Monocytes (Manual) 12 (0.0-12.0) % Eosinophils (Manual) 2 (0.00-3.0) % Atypical Lymphocytes 5 % Platelet Estimate NORMAL (NORMAL) RBC Morphology NORMAL Sodium 141 (137-145) mmol/L Potassium 4.1 (3.5-5.1) mmol/L Chloride 105 (98-107) mmol/L Carbon Dioxide 28 (22-30) mmol/L Anion Gap 12.5 (5-15) MEQ/L BUN 19 H (7-17) mg/dL Creatinine 0.95 (0.52-1.04) mg/dL Estimated GFR > 60.0 ML/MIN Glucose 107 H (74-106) mg/dL Calcium 9.8 (8.4-10.2) mg/dL Total Bilirubin 0.60 (0.2-1.3) mg/dL AST 33 (14-36) U/L ALT 34 (0-35) U/L Alkaline Phosphatase 128 H (38-126) U/L Serum Total Protein 7.4 (6.3-8.2) g/dL Albumin 4.4 (3.5-5.0) g/dL - Progress Progress: improved, pain not gone completely, re-examined Progress Note: 07/22/20 22:29 CAT scan of the face without contrast shows left periorbital soft tissue swelling most consistent with periorbital cellulitis. There is no evidence of post septal extension. The orbits are normal. The globes are unremarkable. Medical decision making: This patient was discussed with Dr. Sylwia Jacques who is covering for Dr. Manning. I reviewed the patient history, physical findings laboratory work-up and results of her CAT scan of her face. The diagnosis will be shingles and periorbital swelling on the left side. The plan will be to place the patient in observation and provide the patient with cool compresses, oral antibiotics, intravenous pain medication and intravenous antibiotics as well as continued treatment with acyclovir 800 mg 5 times a day orally. Discussed with : Lesley Counseled pt/family regarding: lab results, diagnosis, need for follow-up, rad results - Departure Departure Disposition: Observation Clinical Impression: Shingles of eyelid, Periorbital cellulitis of left eye Condition: Stable Critical Care Time: No Referrals: KENNY MANNING [Primary Care Provider] -
[2020-07-22 21:48] LABS: ALBUMIN 4.4 g/dL (3.5-5.0); ALKALINE PHOSPHATASE 128 U/L (38-126); ANION GAP 12.5 MEQ/L (5-15); BLOOD UREA NITROGEN 19 mg/dL (7-17); CHLORIDE 105 mmol/L (98-107); Calcium 9.8 mg/dL (8.4-10.2); Carbon Dioxide 28 mmol/L (22-30); Creatinine 1 0.95 mg/dL (0.52-1.04); EST GLOMERULAR FILTRATION RATE > 60.0 ML/MIN; Glucose 107 mg/dL (74-106); Potassium 4.1 mmol/L (3.5-5.1); SGOT/AST 33 U/L (14-36); SGPT/ALT 34 U/L (0-35); SODIUM 141 mmol/L (137-145); Total Protein 7.4 g/dL (6.3-8.2)
[2020-07-22] MEDS ORDERED: ROCEPHIN 1 Gm-D5w 50 ml Bag** 1 G/50 ML IVPB IV STA (22:24)
[2020-07-22] MEDS ORDERED: CLINDAMYCIN-D5W 600 MG/50 ML*** 600 MG/50 ML BAG IV STA (22:24)
[2020-07-22 22:30] LABS: ATYPICAL LYMPHS 5 %; BAND 3 % (0.0-2.0); Eosinophil 2 % (0.00-3.0); Lymphocytes 29 % (24-44); Monocyte 12 % (0.0-12.0); Neutrophils 49 % (36.0-66.0); Platelet Estimate NORMAL (NORMAL); Total Cells Counted 100
[2020-07-22] MEDS ORDERED: ROCEPHIN 1 Gm-D5w 50 ml Bag** 1 G/50 ML IVPB IV ONE (23:24)
[2020-07-22 23:41] LABS: INFLUENZA A NEGATIVE (NEGATIVE); INFLUENZA B NEGATIVE (NEGATIVE); RESPIRATORY SYNCTIAL VIRUS NEGATIVE (Negative)
[2020-07-23] MEDS ORDERED: MORPHINE SULFATE 4 MG INJ IV PRN (00:15)
[2020-07-23] MEDS ORDERED: HUMULIN R SQ PRN (00:15)
[2020-07-23] MEDS ORDERED: TYLENOL 325 MG PO PRN (00:15)
[2020-07-23] MEDS ORDERED: Zofran 4 MG/2 ML VIAL IV PRN (00:15)
[2020-07-23] MEDS ORDERED: CLINDAMYCIN-D5W 600 MG/50 ML*** 600 MG/50 ML BAG IV ONE (01:09)
[2020-07-23] MEDS: ZOVIRAX 800 MG PO SCH ×4 (01:26→15:01)
[2020-07-23] MEDS: CLINDAMYCIN-D5W 600 MG/50 ML*** 600 MG/50 ML BAG IV SCH ×2 (06:28→14:19)
--- NOTE | 2020-07-23 08:01 | XRAY ---
Indication: Left. Orbital swelling. No known injury. Shingles. Multiple contiguous axial images obtained through the facial bones. Sagittal and coronal reformatted images obtained. Comparison: None A few bilateral dental amalgams produces beam artifact. There is moderate left periorbital soft tissue swelling. No acute fracture, suspicious bony lesions, or radiopaque foreign body. Orbits including roof, daniel, and floors intact. 2.3 cm right maxillary sinus polyp/retention cyst. Remaining paranasal sinuses and nasal passages are clear. Mild nasal septal deviation to the right. Remaining visualized noncontrasted soft tissues including base of the brain unremarkable. Impression: 1. Left periorbital soft tissue swelling favoring inflammatory/infectious process. 2. Incidental right maxillary sinus polyp/retention cyst and nasal septal deviation. 3. Remaining CT facial bones negative. Comment: Preliminary interpretation was made by [facility]. No critical discrepancy.
[2020-07-23] MEDS ORDERED: DELTASONE 20 MG PO SCH (10:00)
[2020-07-23 11:40] VITALS: BP 143/70; PULSE 78; O2SAT 95
[2020-07-23] MEDS ORDERED: Colace 100 MG PO SCH (12:00)
[2020-07-23] MEDS ORDERED: MEDICATION INTERVENTION PO SCH (12:00)
[2020-07-23] MEDS ORDERED: CLARITIN 10 MG PO SCH (12:00)
[2020-07-23] MEDS ORDERED: ECOTRIN 81 MG PO SCH (12:00)
[2020-07-23] MEDS ORDERED: Zestril 10 MG PO SCH (12:00)
[2020-07-23] MEDS ORDERED: Fluor-I-Strip/Ful-Flo OP ONE (12:30)
[2020-07-23] MEDS ORDERED: TETRACAINE 0.5% STERI-UNIT SOL OP ONE (12:30)
--- NOTE | 2020-07-23 15:31 | PCM.SSS ---
History of Present Illness - Chief Complaint Chief Complaint: Left periorbital cellulitis, shingles History of Present Illness: is a 59 year old female pt of Dr. Manning with DM and HTN who came in to ER with shingles and L facial edema/pain. She had been started on acycolivir 800 mg 1 po 5x/d on 07/21/20. Her pain got worse and she was found to have periorbital edema/cellulitis in the ER; CT face showed L periorbital soft tissue swelling favoring inflammtory/infectious process. WBC are nl. In the ER she was the eye was very swollen but was able to be opened by the ER physician for exam. She was given 125mg solumedrol IV in ER and started on IV rocephin and IV clindamycin. - Review of Systems Eyes: Eye Pain, Eye Redness, Tearing Ears, Nose, & Throat: Sinus Drainage Skin: Rash, Skin Lesions All Other Systems: Reviewed and Negative Medications & Allergies Home Medications: Home Medication List Aspirin EC 81 mg [Ecotrin 81 mg] 81 mg PO DAILY 01/24/17 [History Confirmed 07/22/20] Cetirizine HCl [Zyrtec] 10 mg PO DAILY 01/24/17 [History Confirmed 07/22/20] Metformin HCl 1,000 mg PO BID 01/24/17 [History Confirmed 07/22/20] Trazodone HCl 100 mg PO HS 01/24/17 [History Confirmed 07/22/20] Vitamin B Complex [Super B Complex] 1 tab PO DAILY 01/24/17 [History Confirmed 07/22/20] Empagliflozin [Jardiance] 25 mg PO DAILY 11/21/19 [History Confirmed 07/22/20] Atorvastatin Calcium 20 mg PO HS 11/22/19 [History Confirmed 07/22/20] Biotin 5,000 mcg PO DAILY 11/22/19 [History Confirmed 07/22/20] Docusate Sodium 100 mg [Colace 100 MG] 100 mg PO DAILY 11/22/19 [History Confirmed 07/22/20] Fluoxetine HCl 20 mg [Prozac 20 MG] 40 mg PO HS 11/22/19 [History Confirmed 07/22/20] Lisinopril 10 mg [Zestril 10 MG] 1 tab PO DAILY 07/22/20 [History Confirmed 07/22/20] Acyclovir 800 mg [Zovirax 800 mg] 800 mg PO 5XD tablet 07/23/20 [Rx] Clindamycin HCl 300 mg PO QID #40 capsule 07/23/20 [Rx] Dextran 70/Hypromellose [Artificial Tears Eye Drops] 0.5 ml OP Q3H #1 unit 07/23/20 [Rx] Prednisone 20 mg [Deltasone 20 mg] 60 mg PO DAILY #17 tablet 07/23/20 [Rx] Tobramycin [Tobrex] 0.5 inch OP Q3H 7 Days #1 oint...g. 07/23/20 [Rx] Allergies/Adverse Reactions: Allergies Allergy/AdvReac Type Severity Reaction Status Date / Time No Known Drug Allergies Allergy Verified 07/22/20 21:01 - Past Medical History Past Medical History: Yes Neurological History: No Pertinent History ENT History: No Pertinent History Cardiac History: Hypertension Respiratory History: No Pertinent History Endocrine Medical History: Diabetes Type II Musculoskelatal History: No Pertinent History GI Medical History: No Pertinent History History: No Pertinent History Pyscho-Social History: No Pertinent History Reproductive Disorders: No Pertinent History Comment: pt states she has hx of HTN and now has some problems with hypotension - Past Surgical History Past Surgical History: Yes Neuro Surgical History: No Pertinent History Cardiac History: No Pertinent History Respiratory Surgery: No Pertinent History GI Surgical History: No Pertinent History Genitourinary Surgical Hx: No Pertinent History Musculskeletal Surgical Hx: No Pertinent History Female Surgical History: Tubal Ligation - Social History Smoking Status: Never smoker Exposure to second hand smoke: No Alcohol: None Drug Use: none - Physical Exam Vital Signs: Vital Signs - 24 hr Temp Pulse Resp BP Pulse Ox 07/23/20 11:40 78 20 143/70 95 07/23/20 07:39 97.7 F 80 20 150/77 94 L 07/23/20 04:00 97.6 F 69 18 156/84 94 L 07/23/20 01:30 97.1 F 79 18 184/84 95 07/22/20 22:37 98 07/22/20 20:54 98.8 F 96 H 16 181/101 98 General Appearance: no apparent distress, alert Neurologic Exam: oriented x 3, cooperative Eye Exam: PERRL/EOMI, other (L eyelids mildly edematous, but eye opens basically normally. no guilherme erythema/exudate. no conjunctival erythema. Fluoroscein exam with approx 1-2mm tiny area of dye uptake lateral to iris.) Ears, Nose, Throat Exam: moist mucous membranes Neck Exam: normal inspection, non-tender, No lymphadenopathy Respiratory Exam: normal breath sounds, lungs clear, No crackles/rales, No rhonchi, No wheezing Cardiovascular Exam: regular rate/rhythm, normal heart sounds, No murmur Gastrointestinal/Abdomen Exam: soft, normal bowel sounds, No tenderness, No distention, No mass, No guarding, No rebound Back Exam: normal inspection, No CVA tenderness, No rash Extremity Exam: normal inspection, No pedal edema, No swelling Skin Exam: other (L forehead with multiple lesions, some are scabbed. L side of face and preauricular area mildly edematous and mildly TTP. No guilherme erythema or exudates.) Wound Assessment: Skin/Wound Assessment Wound/Incision Assessment Start: 07/23/20 00:00 Text: Status: Active Freq: Q6H Protocol: Document 07/23/20 12:00 [place] (Rec: 07/23/20 12:[address] [place] [address]) Wound/Incision Assessment Left Head Wound Assessment Admission Wound Type shingles Drainage Amount Minimal Drainage Odor None/Absent Surrounding Tissue [place] Comment open to air. from forehead up into scalp Wound Photo Photo Taken No Results - Labs Lab/Micro Results: Lab Results-Last 24 Hours 07/22/20 07/22/20 07/22/20 Range/Units 21:15 21:15 22:45 WBC 5.6 (4.0-10.5) K/mm3 RBC 4.21 (4.1-5.4) M/mm3 Hgb 13.0 (12.0-16.0) gm/dl Hct 40.0 (35-47) % MCV 95.0 (78-100) fl MCH 30.9 (26-32) pg MCHC 32.5 (32-36) g/dl RDW 13.6 (11.5-14.0) % Plt Count 254 (150-450) K/mm3 MPV 8.7 (7.5-11.0) fl Absolute Granulocytes 2.49 (1.4-6.9) Segmented Neutrophils 49 (36.0-66.0) % Band Neutrophils 3 H (0.0-2.0) % Lymphocytes (Manual) 29 (24-44) % Monocytes (Manual) 12 (0.0-12.0) % Eosinophils (Manual) 2 (0.00-3.0) % Atypical Lymphocytes 5 % Platelet Estimate NORMAL (NORMAL) RBC Morphology NORMAL Sodium 141 (137-145) mmol/L Potassium 4.1 (3.5-5.1) mmol/L Chloride 105 (98-107) mmol/L Carbon Dioxide 28 (22-30) mmol/L Anion Gap 12.5 (5-15) MEQ/L BUN 19 H (7-17) mg/dL Creatinine 0.95 (0.52-1.04) mg/dL Estimated GFR > 60.0 ML/MIN Glucose 107 H (74-106) mg/dL POC Glucometer (74 to 106) mg/dL Lactic Acid (0.4-2.0) Calcium 9.8 (8.4-10.2) mg/dL Total Bilirubin 0.60 (0.2-1.3) mg/dL AST 33 (14-36) U/L ALT 34 (0-35) U/L Alkaline Phosphatase 128 H (38-126) U/L Serum Total Protein 7.4 (6.3-8.2) g/dL Albumin 4.4 (3.5-5.0) g/dL Influenza Type A Ag NEGATIVE (NEGATIVE) Influenza Type B Ag NEGATIVE (NEGATIVE) RSV (PCR) NEGATIVE (Negative) SARS-CoV-2 (PCR) NEGATIVE (NEGATIVE) 07/22/20 07/23/20 07/23/20 Range/Units 23:15 07:16 11:05 WBC (4.0-10.5) K/mm3 RBC (4.1-5.4) M/mm3 Hgb (12.0-16.0) gm/dl Hct (35-47) % MCV (78-100) fl MCH (26-32) pg MCHC (32-36) g/dl RDW (11.5-14.0) % Plt Count (150-450) K/mm3 MPV (7.5-11.0) fl Absolute Granulocytes (1.4-6.9) Segmented Neutrophils (36.0-66.0) % Band Neutrophils (0.0-2.0) % Lymphocytes (Manual) (24-44) % Monocytes (Manual) (0.0-12.0) % Eosinophils (Manual) (0.00-3.0) % Atypical Lymphocytes % Platelet Estimate (NORMAL) RBC Morphology Sodium (137-145) mmol/L Potassium (3.5-5.1) mmol/L Chloride (98-107) mmol/L Carbon Dioxide (22-30) mmol/L Anion Gap (5-15) MEQ/L BUN (7-17) mg/dL Creatinine (0.52-1.04) mg/dL Estimated GFR ML/MIN Glucose (74-106) mg/dL POC Glucometer 214 H 263 H (74 to 106) mg/dL Lactic Acid 1.2 (0.4-2.0) Calcium (8.4-10.2) mg/dL Total Bilirubin (0.2-1.3) mg/dL AST (14-36) U/L ALT (0-35) U/L Alkaline Phosphatase (38-126) U/L Serum Total Protein (6.3-8.2) g/dL Albumin (3.5-5.0) g/dL Influenza Type A Ag (NEGATIVE) Influenza Type B Ag (NEGATIVE) RSV (PCR) (Negative) SARS-CoV-2 (PCR) (NEGATIVE) - Radiology Impressions Radiology Exams & Impressions: Radiology Procedures Category Date Time Status FACIAL BONES WO CONTRAST [CT] Stat Exams 07/22/20 21:08 Completed Assessment/Plan (1) Periorbital edema Current Visit: Yes Status: Acute Assessment & Plan: I think more likely inflammatory reaction than infection as she responded so quickly to meds (likely the steroid). Will discharge to home; if any worsening, pt must return through ER [facility]. Home on prednisone 60mg/d, clindamycin 300mg po QID, acyclovir 800mg 5x/d as previously written, artificial tears q3h, and tobramycin ointment. Pt is to take probiotic or eat yogurt daily to avoid c. diff diarrhea. Code(s): R60.0 - LOCALIZED EDEMA (2) Shingles Current Visit: Yes Status: Acute Qualifiers: Herpes zoster complications: with ocular involvement Herpes zoster ocular complication detail: other herpes zoster eye disease Qualified Code(s): B02.39 - Other herpes zoster eye disease Code(s): B02.9 - ZOSTER WITHOUT COMPLICATIONS Hospital Summary - Hospital Course Hospital Course: is a 59 year old female pt of Dr. Manning with DM and HTN who came in to ER with shingles and L facial edema/pain. She had been started on acycolivir 800 mg 1 po 5x/d on 07/21/20. Her pain got worse and she was found to have periorbital edema/cellulitis in the ER; CT face showed L periorbital soft tissue swelling favoring inflammtory/infectious process. WBC are nl. She was given 125mg solumedrol IV in ER and started on IV rocephin and IV clindamycin. This morning she is feeling significantly better and would like to discharge to home. She is having a little eye pain. I did discuss her case with ophthalmology. On fluorescein exam, there is a small 1x2mm area of dye uptake, so she will be sent out on tobramycin ointment, in addition to po clindamydin, po prednisone, and (continued) po acyclovir. She will need to use preservative- free artificial tears every [address] Momin, manager financial systems, in his office on Saturday (in 2 days). - Vitals & Intake/Output Vital Signs: Vital Signs Temperature 97.7 F 07/23/20 07:39 Pulse Rate 78 07/23/20 11:40 Respiratory Rate 20 07/23/20 11:40 Blood Pressure 143/70 07/23/20 11:40 O2 Sat by Pulse Oximetry 95 07/23/20 11:40 Intake & Output: Intake & Output 07/21/20 07/22/20 07/23/20 07/24/20 11:59 11:59 11:59 11:59 Intake Total 600 120 Output Total 850 Balance -250 120 Weight 78.8 kg - Lab Result Diagrams: 07/22/20 21:15 07/22/20 21:15 Lab Results-Last 24 Hrs: Lab Results-Last 24 Hours 07/22/20 07/22/20 07/22/20 Range/Units 21:15 21:15 22:45 WBC 5.6 (4.0-10.5) K/mm3 RBC 4.21 (4.1-5.4) M/mm3 Hgb 13.0 (12.0-16.0) gm/dl Hct 40.0 (35-47) % MCV 95.0 (78-100) fl MCH 30.9 (26-32) pg MCHC 32.5 (32-36) g/dl RDW 13.6 (11.5-14.0) % Plt Count 254 (150-450) K/mm3 MPV 8.7 (7.5-11.0) fl Absolute Granulocytes 2.49 (1.4-6.9) Segmented Neutrophils 49 (36.0-66.0) % Band Neutrophils 3 H (0.0-2.0) % Lymphocytes (Manual) 29 (24-44) % Monocytes (Manual) 12 (0.0-12.0) % Eosinophils (Manual) 2 (0.00-3.0) % Atypical Lymphocytes 5 % Platelet Estimate NORMAL (NORMAL) RBC Morphology NORMAL Sodium 141 (137-145) mmol/L Potassium 4.1 (3.5-5.1) mmol/L Chloride 105 (98-107) mmol/L Carbon Dioxide 28 (22-30) mmol/L Anion Gap 12.5 (5-15) MEQ/L BUN 19 H (7-17) mg/dL Creatinine 0.95 (0.52-1.04) mg/dL Estimated GFR > 60.0 ML/MIN Glucose 107 H (74-106) mg/dL POC Glucometer (74 to 106) mg/dL Lactic Acid (0.4-2.0) Calcium 9.8 (8.4-10.2) mg/dL Total Bilirubin 0.60 (0.2-1.3) mg/dL AST 33 (14-36) U/L ALT 34 (0-35) U/L Alkaline Phosphatase 128 H (38-126) U/L Serum Total Protein 7.4 (6.3-8.2) g/dL Albumin 4.4 (3.5-5.0) g/dL Influenza Type A Ag NEGATIVE (NEGATIVE) Influenza Type B Ag NEGATIVE (NEGATIVE) RSV (PCR) NEGATIVE (Negative) SARS-CoV-2 (PCR) NEGATIVE (NEGATIVE) 07/22/20 07/23/20 07/23/20 Range/Units 23:15 07:16 11:05 WBC (4.0-10.5) K/mm3 RBC (4.1-5.4) M/mm3 Hgb (12.0-16.0) gm/dl Hct (35-47) % MCV (78-100) fl MCH (26-32) pg MCHC (32-36) g/dl RDW (11.5-14.0) % Plt Count (150-450) K/mm3 MPV (7.5-11.0) fl Absolute Granulocytes (1.4-6.9) Segmented Neutrophils (36.0-66.0) % Band Neutrophils (0.0-2.0) % Lymphocytes (Manual) (24-44) % Monocytes (Manual) (0.0-12.0) % Eosinophils (Manual) (0.00-3.0) % Atypical Lymphocytes % Platelet Estimate (NORMAL) RBC Morphology Sodium (137-145) mmol/L Potassium (3.5-5.1) mmol/L Chloride (98-107) mmol/L Carbon Dioxide (22-30) mmol/L Anion Gap (5-15) MEQ/L BUN (7-17) mg/dL Creatinine (0.52-1.04) mg/dL Estimated GFR ML/MIN Glucose (74-106) mg/dL POC Glucometer 214 H 263 H (74 to 106) mg/dL Lactic Acid 1.2 (0.4-2.0) Calcium (8.4-10.2) mg/dL Total Bilirubin (0.2-1.3) mg/dL AST (14-36) U/L ALT (0-35) U/L Alkaline Phosphatase (38-126) U/L Serum Total Protein (6.3-8.2) g/dL Albumin (3.5-5.0) g/dL Influenza Type A Ag (NEGATIVE) Influenza Type B Ag (NEGATIVE) RSV (PCR) (Negative) SARS-CoV-2 (PCR) (NEGATIVE) - Radiology Exams Ordered Rad Exams-Entire Visit: Radiology Procedures Category Date Time Status FACIAL BONES WO CONTRAST [CT] Stat Exams 07/22/20 21:08 Completed - Discharge Disposition: Home, Self-Care Condition: Stable Prescriptions: New Dextran 70/Hypromellose [Artificial Tears Eye Drops] 0.5 ml OP Q3H #1 unit Clindamycin HCl 300 mg PO QID #40 capsule Prednisone 20 mg [Deltasone 20 mg] 60 mg PO DAILY #17 tablet Tobramycin [Tobrex] 0.5 inch OP Q3H 7 Days #1 oint...g. Acyclovir 800 mg [Zovirax 800 mg] 800 mg PO 5XD tablet Continue Cetirizine HCl [Zyrtec] 10 mg PO DAILY Aspirin EC 81 mg [Ecotrin 81 mg] 81 mg PO DAILY Trazodone HCl 100 mg PO HS Metformin HCl 1,000 mg PO BID Vitamin B Complex [Super B Complex] 1 tab PO DAILY Empagliflozin [Jardiance] 25 mg PO DAILY Biotin 5,000 mcg PO DAILY Fluoxetine HCl 20 mg [Prozac 20 MG] 40 mg PO HS Atorvastatin Calcium 20 mg PO HS Docusate Sodium 100 mg [Colace 100 MG] 100 mg PO DAILY Lisinopril 10 mg [Zestril 10 MG] 1 tab PO DAILY Follow up with: KENNY MANNING [Primary Care Provider] -
[2020-07-23] MEDS ORDERED: NON-FORMULARY ITEM (Atorvastatin Calcium [Atorvastatin Calcium] 20 MG) PO SCH (22:00)
[2020-07-23] MEDS ORDERED: Prozac 20 MG PO SCH (22:00)
[2020-07-23] MEDS ORDERED: ROCEPHIN 1 Gm-D5w 50 ml Bag** 1 G/50 ML IVPB IV SCH (22:00)
[2020-07-23] MEDS ORDERED: DESYREL 50 MG PO SCH (22:00)
[2020-07-23] MEDS ORDERED: ZOCOR 20MG PO SCH (22:00)
[2020-07-24] MEDS ORDERED: NON-FORMULARY ITEM (Empagliflozin [Jardiance] 25 MG) PO SCH (10:00)
== END 2020-07-23 16:17 | disposition home or self-care (01) ==
LOC: ED 20:53 → MED SURG 07-23 00:09
PROVIDERS: ADMIT Family Medicine; ATTEND Family Medicine
DX: H05.222 Edema of left orbit (principal); B02.39 Other herpes zoster eye disease; E11.9 Type 2 diabetes mellitus without complications; I10 Essential (primary) hypertension; Z79.899 Other long term (current) drug therapy; Z20.828 Contact with and (suspected) exposure to other viral communicable diseases
CPT/HCPCS: 0241U; 36000; 36415; 70486; 80053; 82947; 83605; 85025; 87040; 96365; 96374; 96375; 99285; G0378; J0696; J2270; J2405; J2930; A9270-GY

== ENCOUNTER 2021-07-18 08:44 | Emergency (ER) | payer OTHER ==
[2021-07-18] MEDS ORDERED: Sodium Chloride 0.9% 1000 ML 1,000 ML IV STA ×2 (08:58→09:53)
--- NOTE | 2021-07-18 08:58 | ERPHSYRPT ---
- History of Present Illness Time Seen by Provider: 07/18/21 08:55 Source: patient, family Exam Limitations: no limitations Patient Subjective Stated Complaint: SOB Triage Nursing Assessment: Patient brought back to ED via w/c and transferred self to bed. Patient A+O X3. Patient's skin pink, warm and dry. Patient complains of SOB that started while she was at work passing medication. Patient states she was standing up passing meds when she felt lightheaded and dizzy. Patient states she sat down and had her vitals taken and they were as follows: b/p 98/60, Pulse 40. Patient currently denies pain or discomfort. Lungs clear A/P deepthi. No cough noted. Physician History: This is a 60 y/o white female who has a h/o dm, htn, seasonal allergies, and depression and presents to ED from work where she was feeling hot, lightheaded and dizzy. 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 pt was tachycardic, with initial sob and had a sbp of 90s. pt is single and lives alone. pt states he was feeling fine when she woke up this morning. she has no new medications. she denies cp, sob, fever, cough upon arrival to ED. pt states she does have anxiety issues but she does not feel str essed Timing/Duration: today Severity: moderate Associated Symptoms: shortness of breath, diaphoresis Allergies/Adverse Reactions: No Known Drug Allergies Allergy (Verified 07/18/21 08:46) Home Medications: Aspirin EC 81 mg [Ecotrin 81 mg] 81 mg PO DAILY 01/24/17 [History] Cetirizine HCl [Zyrtec] 10 mg PO DAILY 01/24/17 [History] Metformin HCl 1,000 mg PO BID 01/24/17 [History] Trazodone HCl 100 mg PO HS 01/24/17 [History] Vitamin B Complex [Super B Complex] 1 tab PO DAILY 01/24/17 [History] Empagliflozin [Jardiance] 25 mg PO DAILY 11/21/19 [History] Atorvastatin Calcium 20 mg PO HS 11/22/19 [History] Biotin 5,000 mcg PO DAILY 11/22/19 [History] Docusate Sodium 100 mg [Docusate Sodium 100 MG] 100 mg PO DAILY 11/22/19 [History] Fluoxetine HCl 20 mg [Prozac 20 MG] 40 mg PO HS 11/22/19 [History] Lisinopril 10 mg [Zestril 10 MG] 1 tab PO DAILY 07/22/20 [History] Hx Tetanus, Diphtheria Vaccination/Date Given: No Hx Influenza Vaccination/Date Given: Yes Hx Pneumococcal Vaccination/Date Given: No Immunizations Up to Date: Yes Travel Risk - International Travel Have you traveled outside of the country in past 3 weeks: No - Coronavirus Screening Are you exhibiting any of the following symptoms?: No Close contact with a COVID-19 positive Pt in past 14-21 Days: No - Vaccine Status Have you recieved a Covid-19 vaccination: Yes 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 - Vaccination Dates Date of 2cond Vaccination (if applicable): 05/05/20 Comment: unknown booster - Review of Systems Constitutional: No Symptoms Eyes: No Symptoms Ears, Nose, & Throat: No Symptoms Respiratory: Dyspnea Cardiac: No Symptoms Abdominal/Gastrointestinal: No Symptoms Genitourinary Symptoms: No Symptoms Musculoskeletal: No Symptoms Skin: No Symptoms Neurological: Dizziness Psychological: No Symptoms Endocrine: No Symptoms Hematologic/Lymphatic: No Symptoms Immunological/Allergic: No Symptoms All Other Systems: Reviewed and Negative - Past Medical History Pertinent Past Medical History: Yes Neurological History: No Pertinent History ENT History: No Pertinent History Cardiac History: Hypertension Respiratory History: No Pertinent History Endocrine Medical History: Diabetes Type II Musculoskeletal History: No Pertinent History GI Medical History: No Pertinent History History: No Pertinent History Psycho-Social History: No Pertinent History Female Reproductive Disorders: No Pertinent History Other Medical History: pt states she has hx of HTN and now has some problems with hypotension - Past Surgical History Past Surgical History: Yes Neuro Surgical History: No Pertinent History Cardiac: No Pertinent History Respiratory: No Pertinent History Gastrointestinal: No Pertinent History Genitourinary: No Pertinent History Musculoskeletal: No Pertinent History Female Surgical History: Tubal Ligation - Social History Smoking Status: Never smoker Exposure to second hand smoke: No Drug Use: none Patient Lives Alone: No - Nursing Vital Signs Nursing Vital Signs: Initial Vital Signs Temperature 97.1 F 07/18/21 08:46 Pulse Rate 102 H 07/18/21 08:46 Respiratory Rate 27 H 07/18/21 08:46 Blood Pressure 155/99 07/18/21 08:46 O2 Sat by Pulse Oximetry 99 07/18/21 08:46 Pain Scale Pain Intensity 0 - Physical Exam General Appearance: no apparent distress, alert, anxiety Eye Exam: PERRL/EOMI, eyes nml inspection Ears, Nose, Throat Exam: normal ENT inspection, moist mucous membranes Neck Exam: normal inspection, non-tender, supple, full range of motion Respiratory Exam: normal breath sounds, lungs clear, respiratory distress, airway intact, No chest tenderness Cardiovascular Exam: regular rate/rhythm, normal heart sounds, normal peripheral pulses Gastrointestinal/Abdomen Exam: soft, normal bowel sounds, No tenderness Pelvic Exam: not done Rectal Exam: not done Back Exam: normal inspection, normal range of motion, No CVA tenderness, No vertebral tenderness Extremity Exam: normal inspection, normal range of motion, pelvis stable Neurologic Exam: alert, oriented x 3, cooperative, crew lead II-XII nml as tested, normal mood/affect, nml cerebellar function, nml station & gait, sensation nml Skin Exam: normal color, warm, dry Lymphatic Exam: No adenopathy SpO2 Interpretation: normal SpO2: 99 O2 Delivery: Room Air - Course Nursing assessment & vital signs reviewed: Yes EKG Interpreted by Me: RATE (102), Sinus Tach, NORMAL AXIS, NORMAL INTERVALS, NORMAL QRS, NORMAL ST-T, Other (no acute ischemia. comparison ekg 11/22/19. new m ild sinus tach today ) Ordered Tests: Active Orders 24 hr Category Date Time Status EKG-ER Only STAT Care 07/18/21 08:58 Active IV Insertion STAT Care 07/18/21 08:58 Active CHEST 1 VIEW (PORTABLE) Stat Exams 07/18/21 09:53 Completed CBC W DIFF Stat Lab 07/18/21 08:50 Completed CMP Stat Lab 07/18/21 08:50 Completed CULTURE,URINE Stat Lab 07/18/21 08:58 Received D-DIMER QUANTITATIVE Stat Lab 07/18/21 09:05 Completed Lactic Acid Stat Lab 07/18/21 09:20 Completed Lactic Acid Stat Lab 07/18/21 11:25 Received T4 (Thyroxine) Stat Lab 07/18/21 08:50 Completed TROPONIN Q3H Lab 07/18/21 08:50 Completed TROPONIN Q3H Lab 07/18/21 12:00 Ordered TROPONIN Q3H Lab 07/18/21 15:00 Ordered TROPONIN Q3H Lab 07/18/21 18:00 Ordered TROPONIN Q3H Lab 07/18/21 21:00 Ordered TSH [TSH, 3RD Generation] Stat Lab 07/18/21 08:50 Completed Medication Summary Generic Name Dose Route Start Last Admin Trade Name [place] PRN Reason Stop Dose Admin Ceftriaxone Sodium/Dextrose 1 g in 50 mls @ 100 mls/hr 07/18/21 12:03 Rocephin 1 Gm-D5w 50 Ml Bag IV 07/18/21 12:32 STAT STA Discontinued Medications Generic Name Dose Route Start Last Admin Trade Name [place] PRN Reason Stop Dose Admin Sodium Chloride 1,000 mls @ 999 mls/hr 07/18/21 08:58 07/18/21 09:59 Sodium Chloride 0.9% 1000 Ml IV 07/18/21 09:58 Infused .Q1H1M STA Infusion Sodium Chloride Confirm 07/18/21 09:05 Sodium Chloride 0.9% 1000 Ml Administered 07/18/21 09:06 Dose 1,000 mls @ ud .ROUTE .STK-MED ONE Sodium Chloride 1,000 mls @ 999 mls/hr 07/18/21 09:53 07/18/21 11:10 Sodium Chloride 0.9% 1000 Ml IV 07/18/21 10:53 Infused .Q1H1M STA Infusion Sodium Chloride Confirm 07/18/21 09:58 Sodium Chloride 0.9% 1000 Ml Administered 07/18/21 09:59 Dose 1,000 mls @ ud .ROUTE .STK-MED ONE Lab/Rad Data: Laboratory Result Diagrams 07/18/21 08:50 07/18/21 08:50 Laboratory Results 07/18/21 07/18/21 07/18/21 Range/Units 09:20 09:05 08:58 WBC (4.0-10.5) K/mm3 RBC (4.1-5.4) M/mm3 Hgb (12.0-16.0) gm/dl Hct (35-47) % MCV (78-100) fl MCH (26-32) pg MCHC (32-36) g/dl RDW (11.5-14.0) % Plt Count (150-450) K/mm3 MPV (7.5-11.0) fl Gran % (36.0-66.0) % Eos # (Auto) (0-0.5) Absolute Lymphs (auto) (1.0-4.6) Absolute Monos (auto) (0.0-1.3) Lymphocytes % (24.0-44.0) % Monocytes % (0.0-12.0) % Eosinophils % (0.00-5.0) % Basophils % (0.0-0.4) % Absolute Granulocytes (1.4-6.9) Basophils # (0-0.4) D-Dimer 440 (215-500) ng/mL Sodium (137-145) mmol/L Potassium (3.5-5.1) mmol/L Chloride (98-107) mmol/L Carbon Dioxide (22-30) mmol/L Anion Gap (5-15) MEQ/L BUN (7-17) mg/dL Creatinine (0.52-1.04) mg/dL Estimated GFR ML/MIN Glucose (74-106) mg/dL Lactic Acid 5.4 H (0.4-2.0) Calcium (8.4-10.2) mg/dL Total Bilirubin (0.2-1.3) mg/dL AST (14-36) U/L ALT (0-35) U/L Alkaline Phosphatase (38-126) U/L Troponin I (0.000-0.034) ng/mL Serum Total Protein (6.3-8.2) g/dL Albumin (3.5-5.0) g/dL Thyroxine (T4) (5.53-10.96) ug/dL TSH 3rd Generation (0.47-4.68) mIU/L Urinalys Dipstick Clnc MAIN LAB Urine Color YELLOW (YELLOW) Urine Appearance CLEAR (CLEAR) Urine pH 5.5 (5-6) Ur Specific [place] 1.010 (1.005-1.025) POC Urine Protein Conf NEGATIVE (Negative) Urine Ketones NEGATIVE (NEGATIVE) Urine Nitrite POSITIVE (NEGATIVE) Urine Bilirubin NEGATIVE (NEGATIVE) Urine Urobilinogen 0.2 (0-1) mg/dL Urine Leukocytes NEGATIVE (NEGATIVE) Urine WBC (Auto) 11-15 (0-5) /HPF Urine RBC (Auto) 0-2 (0-2) /HPF U Epithel Cells (Auto) RARE (FEW) /HPF Urine Bacteria (Auto) RARE (NEGATIVE) /HPF Urine RBC NEGATIVE (0-5) Erik/ul Urine Mucus (Auto) SLIGHT (NEGATIVE) /HPF Urine Yeast (Budding) Few (NEGATIVE) /HPF Ur Culture Indicated? YES Urine Glucose 1000 (NEGATIVE) mg/dL 07/18/21 07/18/21 07/18/21 Range/Units 08:50 08:50 08:50 WBC (4.0-10.5) K/mm3 RBC (4.1-5.4) M/mm3 Hgb (12.0-16.0) gm/dl Hct (35-47) % MCV (78-100) fl MCH (26-32) pg MCHC (32-36) g/dl RDW (11.5-14.0) % Plt Count (150-450) K/mm3 MPV (7.5-11.0) fl Gran % (36.0-66.0) % Eos # (Auto) (0-0.5) Absolute Lymphs (auto) (1.0-4.6) Absolute Monos (auto) (0.0-1.3) Lymphocytes % (24.0-44.0) % Monocytes % (0.0-12.0) % Eosinophils % (0.00-5.0) % Basophils % (0.0-0.4) % Absolute Granulocytes (1.4-6.9) Basophils # (0-0.4) D-Dimer (215-500) ng/mL Sodium (137-145) mmol/L Potassium (3.5-5.1) mmol/L Chloride (98-107) mmol/L Carbon Dioxide (22-30) mmol/L Anion Gap (5-15) MEQ/L BUN (7-17) mg/dL Creatinine (0.52-1.04) mg/dL Estimated GFR ML/MIN Glucose (74-106) mg/dL Lactic Acid (0.4-2.0) Calcium (8.4-10.2) mg/dL Total Bilirubin (0.2-1.3) mg/dL AST (14-36) U/L ALT (0-35) U/L Alkaline Phosphatase (38-126) U/L Troponin I < 0.012 (0.000-0.034) ng/mL Serum Total Protein (6.3-8.2) g/dL Albumin (3.5-5.0) g/dL Thyroxine (T4) 9.32 (5.53-10.96) ug/dL TSH 3rd Generation 1.830 (0.47-4.68) mIU/L Urinalys Dipstick Clnc Urine Color (YELLOW) Urine Appearance (CLEAR) Urine pH (5-6) Ur Specific Freedom (1.005-1.025) POC Urine Protein Conf (Negative) Urine Ketones (NEGATIVE) Urine Nitrite (NEGATIVE) Urine Bilirubin (NEGATIVE) Urine Urobilinogen (0-1) mg/dL Urine Leukocytes (NEGATIVE) Urine WBC (Auto) (0-5) /HPF Urine RBC (Auto) (0-2) /HPF U Epithel Cells (Auto) (FEW) /HPF Urine Bacteria (Auto) (NEGATIVE) /HPF Urine RBC (0-5) Erik/ul Urine Mucus (Auto) (NEGATIVE) /HPF Urine Yeast (Budding) (NEGATIVE) /HPF Ur Culture Indicated? Urine Glucose (NEGATIVE) mg/dL 07/18/21 07/18/21 Range/Units 08:50 08:50 WBC 11.2 H (4.0-10.5) K/mm3 RBC 4.70 (4.1-5.4) M/mm3 Hgb 14.9 (12.0-16.0) gm/dl Hct 45.8 (35-47) % MCV 97.4 (78-100) fl MCH 31.7 (26-32) pg MCHC 32.5 (32-36) g/dl RDW 13.1 (11.5-14.0) % Plt Count 363 (150-450) K/mm3 MPV 9.1 (7.5-11.0) fl Gran % 64.3 (36.0-66.0) % Eos # (Auto) 0.17 (0-0.5) Absolute Lymphs (auto) 3.07 (1.0-4.6) Absolute Monos (auto) 0.74 (0.0-1.3) Lymphocytes % 27.4 (24.0-44.0) % Monocytes % 6.6 (0.0-12.0) % Eosinophils % 1.5 (0.00-5.0) % Basophils % 0.2 (0.0-0.4) % Absolute Granulocytes 7.19 H (1.4-6.9) Basophils # 0.02 (0-0.4) D-Dimer (215-500) ng/mL Sodium 142 (137-145) mmol/L Potassium 4.6 (3.5-5.1) mmol/L Chloride 103 (98-107) mmol/L Carbon Dioxide 24 (22-30) mmol/L Anion Gap 19.8 H (5-15) MEQ/L BUN 29 H (7-17) mg/dL Creatinine 1.28 H (0.52-1.04) mg/dL Estimated GFR 45.5 ML/MIN Glucose 290 H (74-106) mg/dL Lactic Acid (0.4-2.0) Calcium 10.3 H (8.4-10.2) mg/dL Total Bilirubin 0.80 (0.2-1.3) mg/dL AST 27 (14-36) U/L ALT 26 (0-35) U/L Alkaline Phosphatase 118 (38-126) U/L Troponin I (0.000-0.034) ng/mL Serum Total Protein 8.0 (6.3-8.2) g/dL Albumin 4.9 (3.5-5.0) g/dL Thyroxine (T4) (5.53-10.96) ug/dL TSH 3rd Generation (0.47-4.68) mIU/L Urinalys Dipstick Clnc Urine Color (YELLOW) Urine Appearance (CLEAR) Urine pH (5-6) Ur Specific [place] (1.005-1.025) POC Urine Protein Conf (Negative) Urine Ketones (NEGATIVE) Urine Nitrite (NEGATIVE) Urine Bilirubin (NEGATIVE) Urine Urobilinogen (0-1) mg/dL Urine Leukocytes (NEGATIVE) Urine WBC (Auto) (0-5) /HPF Urine RBC (Auto) (0-2) /HPF U Epithel Cells (Auto) (FEW) /HPF Urine Bacteria (Auto) (NEGATIVE) /HPF Urine RBC (0-5) Erik/ul Urine Mucus (Auto) (NEGATIVE) /HPF Urine Yeast (Budding) (NEGATIVE) /HPF Ur Culture Indicated? Urine Glucose (NEGATIVE) mg/dL - Progress Progress: improved, re-examined Progress Note: 07/18/21 11:21 cxr shows no acute cardiopulmonary process Counseled pt/family regarding: lab results, diagnosis, need for follow-up, rad results - Departure Departure Disposition: Home Clinical Impression: UTI (urinary tract infection) Condition: Stable Critical Care Time: No Referrals: KENNY RAMSAY [Primary Care Provider] - Follow up/PCP as directed Additional Instructions: drink plenty of fluids. follow up with your primary care physician for further evaluation and management Prescriptions: Ciprofloxacin [Cipro 500 MG] 500 mg PO BID #14 tablet
[2021-07-18] MEDS ORDERED: Sodium Chloride 0.9% 1000 ML 1,000 ML ONE ×2 (09:05→09:58)
[2021-07-18 09:11] LABS: Absolute Neutrophil Ct (ANC) 7.19 (1.4-6.9); Basophil (Absolute #) 0.02 (0-0.4); Eosinophil % 1.5 % (0.00-5.0); Eosinophil (Absolute #) 0.17 (0-0.5); Hematocrit 45.8 % (35-47); Hemoglobin 14.9 gm/dl (12.0-16.0); Lymphocyte (Absolute #) 3.07 (1.0-4.6); Lymphocytes % 27.4 % (24.0-44.0); Mean Cell Volume 97.4 fl (78-100); Mean Corpuscular Hemoglobin 31.7 pg (26-32); Mean Corpuscular Hgb Concent. 32.5 g/dl (32-36); Mean Platelet Volume 9.1 fl (7.5-11.0); Monocyte (Absolute #) 0.74 (0.0-1.3); Monocytes % 6.6 % (0.0-12.0); Neutrophil % 64.3 % (36.0-66.0); Platelet Count 363 K/mm3 (150-450); Red Cell Distribution Width 13.1 % (11.5-14.0); White Blood Count 11.2 K/mm3 (4.0-10.5)
[2021-07-18 09:20] LABS: ALBUMIN 4.9 g/dL (3.5-5.0); ANION GAP 19.8 MEQ/L (5-15); BILIRUBIN,TOTAL 0.8 mg/dL (0.2-1.3); Calcium 10.3 mg/dL (8.4-10.2); Creatinine 1 1.28 mg/dL (0.52-1.04); EST GLOMERULAR FILTRATION RATE 45.5 ML/MIN; Potassium 4.6 mmol/L (3.5-5.1)
--- NOTE | 2021-07-18 10:10 | XRAY ---
Indication: Short of breath. Comparison: December 28, 2019. Portable chest better inflated and now clear again with a few incidental tiny calcified granulomas. Heart not enlarged. Bony thorax intact again with mild osteopenia and degenerative changes. No new/acute findings.
[2021-07-18 11:54] LABS: Bacteria RARE /HPF (NEGATIVE); Epithelial Cells RARE /HPF (FEW); Mucus SLIGHT /HPF (NEGATIVE); RBC 0-2 /HPF (0-2)
[2021-07-18 11:59] LABS: Budding Yeast Few /HPF (NEGATIVE)
[2021-07-18 12:00] LABS: Appearance CLEAR (CLEAR); Bilirubin NEGATIVE (NEGATIVE); Glucose 1000 mg/dL (NEGATIVE); Ketones NEGATIVE (NEGATIVE); Nitrite POSITIVE (NEGATIVE); Ph 5.5 (5-6); Protein,Urine Dip NEGATIVE (Negative); RBC NEGATIVE Ery/ul (0-5); Urine Cultured Indicated? YES; Urobilinogen 0.2 mg/dL (0-1)
[2021-07-18 12:01] LABS: Dipstick done @ ? MAIN LAB
[2021-07-18] MEDS ORDERED: ROCEPHIN 1 Gm-D5w 50 ml Bag** 1 G/50 ML IVPB IV STA (12:03)
[2021-07-18] MEDS ORDERED: ROCEPHIN 1 Gm-D5w 50 ml Bag** 1 G/50 ML IVPB IV ONE (12:22)
[2021-07-18 12:51] VITALS: BP 119/79; PULSE 85; O2SAT 96
== END 2021-07-18 12:52 | disposition home or self-care (01) ==
LOC: ED 08:44
DX: N39.0 Urinary tract infection, site not specified (principal); R42 Dizziness and giddiness; R06.02 Shortness of breath; I10 Essential (primary) hypertension; E11.9 Type 2 diabetes mellitus without complications; Z79.84 Long term (current) use of oral hypoglycemic drugs; Z79.899 Other long term (current) drug therapy
CPT/HCPCS: 36000; 36415; 71045; 80053; 81015; 83605; 84436; 84443; 84484; 85025; 85379; 87077; 87086; 87186; 93005; 96365; 99284; J0696

== ENCOUNTER 2022-10-17 09:45 | Emergency (ER) | payer BC, OTHER ==
--- NOTE | 2022-10-17 09:52 | ERPHSYRPT ---
- History of Present Illness Time Seen by Provider: 10/17/22 09:52 Source: patient Exam Limitations: no limitations Physician History: This is a 62-year-old white female patient of Dr. Manning who has a history of hypertension but is no longer taking any medications for hypertension. She has periodic episodes of low blood pressure. 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 She has no complaints of chest pain. She had mild headache a couple days ago but does not have headache now. She has had no visual changes. She denies cough. She denies shortness of breath. Her blood pressure was low when it was checked at work and she arrives to the emergency department with a systolic blood pressure of 94. She has not had any vomiting diarrhea symptoms. She denies any type of blood loss. Patient has a history of diabetes, hyperlipidemia, depression and seasonal allergies. Patient's granddaughter approximately a year ago and patient's daughter last week. Timing/Duration: today Severity: mild (To moderate) Modifying Factors: Improves With: nothing Associated Symptoms: weakness, No shortness of breath, No chest pain, No fever, No headaches Allergies/Adverse Reactions: No Known Drug Allergies Allergy (Verified 10/17/22 09:53) Home Medications: Aspirin EC 81 mg [Ecotrin 81 mg] 81 mg PO DAILY 01/24/17 [History] Cetirizine HCl [Zyrtec] 10 mg PO DAILY 01/24/17 [History] Metformin HCl 1,000 mg PO BID 01/24/17 [History] Trazodone HCl 100 mg PO HS 01/24/17 [History] Vitamin B Complex [Super B Complex] 1 tab PO DAILY 01/24/17 [History] Empagliflozin [Jardiance] 25 mg PO DAILY 11/21/19 [History] Atorvastatin Calcium 20 mg PO HS 11/22/19 [History] Fluoxetine HCl 20 mg [Prozac 20 MG] 20 mg PO HS 11/22/19 [History] Dulaglutide [Trulicity] 3 mg SQ WEEKLY 10/17/22 [History] Hx Tetanus, Diphtheria Vaccination/Date Given: No Hx Influenza Vaccination/Date Given: Yes Hx Pneumococcal Vaccination/Date Given: No Travel Risk - International Travel Have you traveled outside of the country in past 3 weeks: No - Coronavirus Screening Are you exhibiting any of the following symptoms?: No Close contact with a COVID-19 positive Pt in past 14-21 Days: No - Vaccine Status Have you recieved a Covid-19 vaccination: Yes Rn Diabetes: Moderna - Vaccination Dates Date of 2cond Vaccination (if applicable): 05/05/20 Comment: unknown booster - Review of Systems Constitutional: Weakness Eyes: No Symptoms Ears, Nose, & Throat: No Symptoms Respiratory: No Symptoms Cardiac: No Symptoms Abdominal/Gastrointestinal: No Symptoms Genitourinary Symptoms: No Symptoms Musculoskeletal: No Symptoms Skin: No Symptoms Neurological: No Symptoms Psychological: No Symptoms Endocrine: No Symptoms Hematologic/Lymphatic: No Symptoms Immunological/Allergic: No Symptoms All Other Systems: Reviewed and Negative - Past Medical History Pertinent Past Medical History: Yes Neurological History: No Pertinent History ENT History: No Pertinent History Cardiac History: Hypertension Respiratory History: No Pertinent History Endocrine Medical History: Diabetes Type II Musculoskeletal History: No Pertinent History GI Medical History: No Pertinent History History: No Pertinent History Psycho-Social History: No Pertinent History Female Reproductive Disorders: No Pertinent History Other Medical History: pt states she has hx of HTN and now has some problems with hypotension - Past Surgical History Past Surgical History: Yes Neuro Surgical History: No Pertinent History Cardiac: No Pertinent History Respiratory: No Pertinent History Gastrointestinal: No Pertinent History Genitourinary: No Pertinent History Musculoskeletal: No Pertinent History Female Surgical History: Tubal Ligation - Social History Smoking Status: Never smoker Exposure to second hand smoke: No Drug Use: none Patient Lives Alone: No - Nursing Vital Signs Nursing Vital Signs: Initial Vital Signs Temperature 97.0 F 10/17/22 09:58 Pulse Rate 90 10/17/22 09:58 Respiratory Rate 18 10/17/22 09:58 Blood Pressure 139/87 10/17/22 09:58 O2 Sat by Pulse Oximetry 96 10/17/22 09:58 Pain Scale Pain Intensity 0 - Physical Exam General Appearance: no apparent distress, alert, anxiety Eye Exam: PERRL/EOMI, eyes nml inspection Ears, Nose, Throat Exam: normal ENT inspection, moist mucous membranes Neck Exam: normal inspection, non-tender, supple, full range of motion Respiratory Exam: normal breath sounds, lungs clear, airway intact, No chest tenderness, No respiratory distress Cardiovascular Exam: regular rate/rhythm, normal heart sounds, normal peripheral pulses Gastrointestinal/Abdomen Exam: soft, normal bowel sounds, No tenderness Pelvic Exam: not done Rectal Exam: not done Back Exam: normal inspection, normal range of motion, No CVA tenderness, No vertebral tenderness Extremity Exam: normal inspection, normal range of motion, pelvis stable Neurologic Exam: alert, oriented x 3, cooperative, clinical recruiter II-XII nml as tested, normal mood/affect, nml cerebellar function, nml station & gait, sensation nml Skin Exam: normal color, warm, dry Lymphatic Exam: No adenopathy SpO2 Interpretation: normal O2 Delivery: Room Air - Course Nursing assessment & vital signs reviewed: Yes EKG Interpreted by Me: RATE (90), Sinus Rhythm, NORMAL AXIS, NORMAL INTERVALS, Left Bundle Branch Block, Other (No acute ischemic changes on today's twelve- lead EKG.) Ordered Tests: Active Orders 24 hr Category Date Time Status Manager Home STAT Care 10/17/22 09:55 Active EKG-ER Only STAT Care 10/17/22 09:55 Active IV Insertion STAT Care 10/17/22 09:55 Active Pulse Oximetry (ED) STAT Care 10/17/22 09:55 Active CBC W DIFF Stat Lab 10/17/22 09:55 Completed CMP Stat Lab 10/17/22 10:07 Completed MAGNESIUM Stat Lab 10/17/22 10:07 Completed NT PRO BNPII Stat Lab 10/17/22 10:07 Completed TROPONIN Q4H Lab 10/17/22 10:07 Completed TROPONIN Q4H Lab 10/17/22 14:00 Ordered TROPONIN Q4H Lab 10/17/22 18:00 Ordered UA W/RFX UR CULTURE Stat Lab 10/17/22 11:14 Completed Medication Summary Discontinued Medications Generic Name Dose Route Start Last Admin Trade Name Jorgitoq PRN Reason Stop Dose Admin Sodium Chloride 1,000 mls @ 999 mls/hr 10/17/22 09:55 10/17/22 11:28 Sodium Chloride 0.9% 1000 Ml IV 10/17/22 10:55 Infused .Q1H1M STA Infusion Sodium Chloride Confirm 10/17/22 10:14 Sodium Chloride 0.9% 1000 Ml Administered 10/17/22 10:15 Dose 1,000 mls @ ud .ROUTE .[facility] Lab/Rad Data: Laboratory Result Diagrams 10/17/22 09:55 10/17/22 10:07 Laboratory Results 10/17/22 10/17/22 10/17/22 Range/Units 11:14 10:07 10:07 WBC (4.0-10.5) x10^3/uL RBC (4.1-5.4) x10^6/uL Hgb (12.0-16.0) g/dL Hct (35-47) % MCV (78-100) fL MCH (26-32) pg MCHC (32-36) g/dL RDW (11.5-14.0) % Plt Count (150-450) x10^3/uL MPV (7.5-11.0) fL Gran % (36.0-66.0) % Immature Gran % (Auto) (0.00-0.4) % Nucleat RBC Rel Count (0.00-0.1) % Eos # (Auto) (0-0.5) x10^3/uL Immature Gran # (Auto) (0.00-0.03) x10^3u/L Absolute Lymphs (auto) (1.0-4.6) x10^3/uL Absolute Monos (auto) (0.0-1.3) x10^3/uL Absolute Nucleated RBC (0.00-0.01) x10^3u/L Lymphocytes % (24.0-44.0) % Monocytes % (0.0-12.0) % Eosinophils % (0.00-5.0) % Basophils % (0.0-0.4) % Absolute Granulocytes (1.4-6.9) x10^3/uL Basophils # (0-0.4) x10^3/uL Sodium 142 (137-145) mmol/L Potassium 4.2 (3.5-5.1) mmol/L Chloride 108 H (98-107) mmol/L Carbon Dioxide 23 (22-30) mmol/L Anion Gap 15.1 H (5-15) MEQ/L BUN 28 H (7-17) mg/dL Creatinine 1.47 H (0.52-1.04) mg/dL Estimated GFR 38.5 ML/MIN Glucose 210 H (74-106) mg/dL Calcium 9.8 (8.4-10.2) mg/dL Magnesium 2.1 (1.6-2.3) mg/dL Total Bilirubin 0.50 (0.2-1.3) mg/dL AST 29 (14-36) U/L ALT 28 (0-35) U/L Alkaline Phosphatase 113 (38-126) U/L Troponin I < 0.012 (0.000-0.034) ng/mL NT-Pro-B Natriuret Pep 215 (<300) pg/mL Serum Total Protein 7.6 (6.3-8.2) g/dL Albumin 4.3 (3.5-5.0) g/dL Urine Color Dark Yellow A (Yellow) Urine Appearance Clear (Clear) Urine pH 5.5 (4.6-8.0) Ur Specific [place] >=1.030 A (1.005-1.030) Urine Protein Negative (Negative) Urine Glucose (UA) >=1000 A (Negative) mg/dL Urine Ketones Trace A (Negative) Urine Blood Negative (Negative) Urine Nitrite Negative (Negative) Urine Bilirubin Small A (Negative) Urine Urobilinogen 0.2 (0.2) mg/dL Ur Leukocyte Esterase Negative (Negative) U Hyaline Cast (Auto) 3-5 A (0-2) /LPF Urine Microscopic RBC 0-2 (0-5) /HPF Urine Microscopic WBC 0-2 (0-5) /HPF Ur Epithelial Cells Rare (None Seen) /HPF Urine Bacteria None Seen (None Seen) /HPF Urine Culture Reflexed NO (NO) 10/17/22 Range/Units 09:55 WBC 7.5 (4.0-10.5) x10^3/uL RBC 4.45 (4.1-5.4) x10^6/uL Hgb 13.7 (12.0-16.0) g/dL Hct 43.1 (35-47) % MCV 96.9 (78-100) fL MCH 30.8 (26-32) pg MCHC 31.8 L (32-36) g/dL RDW 12.4 (11.5-14.0) % Plt Count 317 (150-450) x10^3/uL MPV 8.8 (7.5-11.0) fL Gran % 57.9 (36.0-66.0) % Immature Gran % (Auto) 0.3 (0.00-0.4) % Nucleat RBC Rel Count 0.0 (0.00-0.1) % Eos # (Auto) 0.10 (0-0.5) x10^3/uL Immature Gran # (Auto) 0.02 (0.00-0.03) x10^3u/L Absolute Lymphs (auto) 2.45 (1.0-4.6) x10^3/uL Absolute Monos (auto) 0.55 (0.0-1.3) x10^3/uL Absolute Nucleated RBC 0.00 (0.00-0.01) x10^3u/L Lymphocytes % 32.8 (24.0-44.0) % Monocytes % 7.4 (0.0-12.0) % Eosinophils % 1.3 (0.00-5.0) % Basophils % 0.3 (0.0-0.4) % Absolute Granulocytes 4.34 (1.4-6.9) x10^3/uL Basophils # 0.02 (0-0.4) x10^3/uL Sodium (137-145) mmol/L Potassium (3.5-5.1) mmol/L Chloride (98-107) mmol/L Carbon Dioxide (22-30) mmol/L Anion Gap (5-15) MEQ/L BUN (7-17) mg/dL Creatinine (0.52-1.04) mg/dL Estimated GFR ML/MIN Glucose (74-106) mg/dL Calcium (8.4-10.2) mg/dL Magnesium (1.6-2.3) mg/dL Total Bilirubin (0.2-1.3) mg/dL AST (14-36) U/L ALT (0-35) U/L Alkaline Phosphatase (38-126) U/L Troponin I (0.000-0.034) ng/mL NT-Pro-B Natriuret Pep (<300) pg/mL Serum Total Protein (6.3-8.2) g/dL Albumin (3.5-5.0) g/dL Urine Color (Yellow) Urine Appearance (Clear) Urine pH (4.6-8.0) Ur Specific [place] (1.005-1.030) Urine Protein (Negative) Urine Glucose (UA) (Negative) mg/dL Urine Ketones (Negative) Urine Blood (Negative) Urine Nitrite (Negative) Urine Bilirubin (Negative) Urine Urobilinogen (0.2) mg/dL Ur Leukocyte Esterase (Negative) U Hyaline Cast (Auto) (0-2) /LPF Urine Microscopic RBC (0-5) /HPF Urine Microscopic WBC (0-5) /HPF Ur Epithelial Cells (None Seen) /HPF Urine Bacteria (None Seen) /HPF Urine Culture Reflexed (NO) - Progress Progress: improved Progress Note: 10/17/22 11:41 This patient's medical issue is 1 of moderate complexity. Level complexity and the work-up performed is based on review of the patient's past medical history, review of the patient's old laboratory data, review of the patient's medication list, review of the patient's drug allergy list, history of present illness and physical findings on examination. The work-up of the patient includes twelve- lead EKG, troponin level, CBC, CMP and urinalysis. We also provided patient with 1 L of intravenous fluid. I reviewed the work-up results. There is no evidence of any acute or emergent medical issue. Patient's systolic blood pressure is now 150. At the time of discharge she does not have chest pain or shortness of breath. She feels less weak as well. She has no abdominal pain. She denies nausea Counseled pt/family regarding: lab results, diagnosis, need for follow-up, rad results Medical Desision Making - Independent Historian Additional History obtained from: Relative/friend - Diagnostic Testing Diagnostic test were ordered, analyzed, and reviewed by me: Yes - Risk of complications Minimal Risk: Minimal risk of morbidity - Departure Departure Disposition: Home Clinical Impression: Hypotension, Mild dehydration, Renal insufficiency, Hyperglycemia Condition: Stable Critical Care Time: No Referrals: KENNY MANNING [Primary Care Provider] - Follow up/PCP as directed Additional Instructions: Drink plenty of fluids. Take your medication as prescribed. Hold any blood pre ssure medication. Call your primary care provider today to make arrangements for follow-up appointment and further management.
[2022-10-17] MEDS ORDERED: Sodium Chloride 0.9% 1000 ML 1,000 ML IV STA (09:55)
[2022-10-17 09:59] VITALS: TEMP 97
[2022-10-17 10:12] LABS: Absolute Neutrophil Ct (ANC) 4.34 x10^3/uL (1.4-6.9); BASOPHIL % 0.3 % (0.0-0.4); Basophil (Absolute #) 0.02 x10^3/uL (0-0.4); Eosinophil % 1.3 % (0.00-5.0); Hematocrit 43.1 % (35-47); Hemoglobin 13.7 g/dL (12.0-16.0); IMMATURE GRAN # 0.02 x10^3u/L (0.00-0.03); IMMATURE GRAN % 0.3 % (0.00-0.4); Lymphocyte (Absolute #) 2.45 x10^3/uL (1.0-4.6); Lymphocytes % 32.8 % (24.0-44.0); Mean Cell Volume 96.9 fL (78-100); Mean Corpuscular Hemoglobin 30.8 pg (26-32); Mean Corpuscular Hgb Concent. 31.8 g/dL (32-36); Mean Platelet Volume 8.8 fL (7.5-11.0); Monocyte (Absolute #) 0.55 x10^3/uL (0.0-1.3); Monocytes % 7.4 % (0.0-12.0); Neutrophil % 57.9 % (36.0-66.0); Platelet Count 317 x10^3/uL (150-450); Red Blood Count 4.45 x10^6/uL (4.1-5.4); Red Cell Distribution Width 12.4 % (11.5-14.0); White Blood Count 7.5 x10^3/uL (4.0-10.5)
[2022-10-17] MEDS ORDERED: Sodium Chloride 0.9% 1000 ML 1,000 ML ONE (10:14)
[2022-10-17 10:40] LABS: ALBUMIN 4.3 g/dL (3.5-5.0); ANION GAP 15.1 MEQ/L (5-15); BILIRUBIN,TOTAL 0.5 mg/dL (0.2-1.3); Calcium 9.8 mg/dL (8.4-10.2); Creatinine 1 1.47 mg/dL (0.52-1.04); EST GLOMERULAR FILTRATION RATE 38.5 ML/MIN; MAGNESIUM 2.1 mg/dL (1.6-2.3); Potassium 4.2 mmol/L (3.5-5.1); Total Protein 7.6 g/dL (6.3-8.2)
[2022-10-17 11:38] LABS: Appearance Clear (Clear); Bacteria None Seen /HPF (None Seen); Bilirubin Small (Negative); Blood Negative (Negative); Epithelial Cells Rare /HPF (None Seen); Glucose, Urine >=1000 mg/dL (Negative); Ketones Trace (Negative); Leukocyte Esterase Negative (Negative); Nitrite Negative (Negative); Ph 5.5 (4.6-8.0); Protein,Urine Dip Negative (Negative); RBC 0-2 /HPF (0-5); Specific Gravity >=1.030 (1.005-1.030); Urobilinogen 0.2 mg/dL (0.2); WBC 0-2 /HPF (0-5)
[2022-10-17 11:39] LABS: ADD URINE CULTURE? NO (NO)
[2022-10-17 12:04] VITALS: BP 152/96; PULSE 80; RESP 16; O2SAT 96
== END 2022-10-17 12:07 | disposition home or self-care (01) ==
LOC: ED 09:45
DX: I95.9 Hypotension, unspecified (principal); E86.0 Dehydration; N28.9 Disorder of kidney and ureter, unspecified; E11.65 Type 2 diabetes mellitus with hyperglycemia; R53.1 Weakness; E78.5 Hyperlipidemia, unspecified; Z79.84 Long term (current) use of oral hypoglycemic drugs; Z79.85 Long-term (current) use of injectable non-insulin antidiabetic drugs; Z79.899 Other long term (current) drug therapy
CPT/HCPCS: 36000; 36415; 80053; 81001; 83735; 83880; 84484; 85025; 93005; 93041; 94760; 96360; 99284